=== PATIENT | male | born 1955 | race Caucasian/White ===

== ENCOUNTER 2021-06-03 09:41 | Emergency (ER) | payer MEDICARE, SELFPAY ==
--- NOTE | ~2021-06-03 | CT_ITS ---
EXAMINATION: CT abdomen pelvis wo con EXAM DATE: 06/03/2021 10:08 INDICATION: Right flank pain, stone study. TECHNIQUE: Spiral CT of the abdomen and pelvis was performed without contrast. Axial, coronal and s agittal images of the abdomen and pelvis were reviewed. The dose-length product (DLP) for this exami nation was 356.64 mGy-cm. The exposure was tailored according to patient size (auto mA exposure cont rol), and iterative reconstruction (ASIR) was used as additional dose reduction technique. There is no prior study for comparison. FINDINGS: There are 2 liver hypodensities most likely cysts. Spleen, adrenal glands, pancreas are unr emarkable. Gallbladder is unremarkable. No biliary obstruction. Punctate bilateral nephrolithiasis . There are no ureteral stones. There is no obstructive nephropathy. The prostate is unremarkable. L eft inguinal surgical clips from hernia repair. The bladder is unremarkable. There is no retroperit brennan or pelvic lymphadenopathy. There is mild scattered arteriosclerotic disease. The appendix is normal. The stomach and small bowel are unremarkable. There is mild descending and s igmoid colonic colonic diverticulosis. There is no adjacent inflammatory change to suggest diverticu litis. No free intraperitoneal gas. The heart is normal in size. There are no pericardial or pleu ral effusions. The lung bases are unremarkable. There are no osteoblastic or osteolytic lesions elizabeth ntified. IMPRESSION: 1. No acute intra-abdominal findings. 2. Punctate bilateral nephrolithiasis. 3. Mild colonic diverticulosis. Reviewed, dictated and finalized at location B. X CASTER
[2021-06-03 09:51] VITALS: BP 149/81; PULSE 56; RESP 16; TEMP 36.4; O2SAT 98
--- NOTE | 2021-06-03 09:56 | ED.GENADULT ---
HPI - General Adult General Chief complaint: Urogenital-Male Stated complaint: kidney stone Time Seen by Provider: 06/03/21 09:43 History of Present Illness HPI narrative: 65-year-old male with a history of kidney stones presents to the emergency department for evaluation of right flank pain. Patient states his right lower flank pain began Navin and has been persistent. Patient has been taking [id number] medications for this. Patient has had a stone previously and suspects that is what is going on. Patient's last stone was approximately 3 to 4 years ago and was cared for at [place]. Patient does not have a local urologist. Patient has had previous service at our hospital and wanted to be treated for the kidney stone at this hospital. Patient denies any chest pain or shortness of breath. Patient denies any associated nausea vomiting or diarrhea. Patient declined needing any medications for pain control at this time. Related Data Home Medications Medication Instructions Recorded Confirmed amiodarone 200 mg tablet 200 mg PO DAILY 05/02/19 aspirin 81 mg tablet,delayed 81 mg PO DAILY 05/02/19 release atorvastatin 20 mg tablet 20 mg PO DAILY 05/02/19 diltiazem HCl 300 mg 300 mg PO DAILY 05/02/19 capsule,extended release 24 hr losartan 50 mg tablet 50 mg PO DAILY 05/02/19 metformin 500 mg tablet 500 mg PO DAILY 05/02/19 omeprazole 20 mg capsule,delayed 20 mg PO DAILY 05/02/19 release tamsulosin 0.4 mg capsule 0.4 mg PO DAILY 05/02/19 Allergies Allergy/AdvReac Type Severity Reaction Status Date / Time clindamycin Allergy Unknown Unknown Verified 05/02/19 08:12 Review of Systems Review of Systems: CONSTITUTIONAL: Denies fever, chills, or sweats. EYES: Denies visual changes, redness, or discharge. ENT: Denies rhinorrhea, congestion, sore throat, or otalgia. CARDIOVASCULAR: Denies chest pain, palpitations, or edema. RESPIRATORY: Denies cough or dyspnea. GASTROINTESTINAL: Denies abdominal pain, nausea, vomiting, or diarrhea. GENITOURINARY: Denies dysuria or hematuria. Does report right lower flank pain SKIN: Denies rash or itching. MUSCULOSKELETAL: Denies back pain, joint pain, or myalgia. NEUROLOGIC: Denies headache, numbness, or weakness. 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 HEAD: normocephalic, atraumatic. EYES: PERRLA/EOMI, conjunctivae clear. NOSE: Normal no drainage THROAT: Pharynx clear, no exudate. NECK: Supple. No adenopathy, no masses. RESPIRATORY: Airway patent, respirations nonlabored. Clear to auscultation bilaterally, no rales, rhonchi, wheezing. CARDIOVASCULAR: Regular rate and rhythm without murmurs rubs or gallops. ABDOMINAL: Soft, nontender, nondistended, normal bowel sounds. Right CVA tenderness to palpation MUSCULOSKELETAL: Moves all extremities. Strength/ROM intact, No edema, No calf tenderness. NEURO: Alert. Cranial nerves II through XII intact. Good gait. Good coordination SKIN: Warm, dry. Normal Color PSYCHIATRIC: Normal affect/mood. Course Reevaluation(s) Reevaluation #1: Patient feels improved. Patient was updated the results of his CT. Patient was updated on the results of his labs. Patient was encouraged to have close follow-up with his primary care physi
[2021-06-03 10:22] LABS: Basophils Absolute Auto 0.1 K/mm3 (0.0-0.1); Eosinophils Absolute Auto 0.4 K/mm3 (0-0.3); Eosinophils Percent Auto 3.7 % (0-4.4); Hematocrit 47.4 % (42.0-52.0); Hemoglobin 15.3 g/dL (14.0-18.0); Lymphocytes Absolute Auto 1.92 K/mm3 (0.9-3.2); Mean Corpuscular HGB Conc 32.3 g/dl (32-36); Mean Corpuscular Volume 89.8 fl (80-100); Mean Platelet Volume 10.3 fl (7.4-10.4); Monocytes Absolute Auto 1.1 K/mm3 (0.1-0.6); Monocytes Percent Auto 11.1 % (2.6-8.5); Neutrophils Absolute Auto 6.4 K/mm3 (1.3-6.7); Neutrophils Percent Auto 63.2 % (45.5-73.1); Platelet Count Result 259 k/mm3 (150-375); Red Blood Count 5.28 M/mm3 (4.6-6.20); Red Cell Distribution Width 14.1 % (11.5-14.5); White Blood Count 10.1 K/mm3 (4.5-10.0)
[2021-06-03 10:27] LABS: Add Urine Microscopic? YES; Appearance Urine Clear (Clear); Bilirubin Urine Negative (Negative); Blood Urine Negative (Negative); Color Urine Yellow (Yellow); Glucose Urine UA Negative (Negative); Ketones Urine Negative (Negative); Leukocyte Esterase Ur Negative LEU/UL (Negative); Mucus Urine Rare /lpf; Nitrate Urine Negative (Negative); Protein Urine Negative (Negative); RBC Urine 0-2 /hpf (0-2); Specific Grav Ur 1.014 (1.001-1.035); Urobilinogen Urine Negative mg/dL (<2.0); WBC Urine 0-3 /hpf
[2021-06-03 10:46] LABS: Alanine Aminotransferase 38 U/L (4-50); Albumin Level 4.6 g/dL (3.5-5.1); Alkaline Phosphatase 96 U/L (38-126); Anion Gap 12 mmol/L (8-16); Aspartate Amino Transferase 44 U/L (17-59); Bilirubin,Total 0.9 mg/dL (0.2-1.3); Blood Urea Nitrogen 18 mg/dL (9-20); Calcium 9.8 mg/dL (8.4-10.2); Carbon Dioxide 30 mmol/L (22-30); Chloride 99 mmol/L (98-107); Estimated CRCL calculation 77 ml/min; Estimated Glomerular Filt Rate > 60; Glucose 102 mg/dL (65-110); Potassium 3.7 mmol/L (3.4-5.0); Sodium 141 mmol/L (137-145)
[2021-06-03 11:46] VITALS: BP 140/76; PULSE 57; RESP 16
== END 2021-06-03 11:48 | disposition home or self-care (01) ==
PROVIDERS: Emergency Provider Emergency Medicine; PCP Internal Medicine
DX: M54.50 Low back pain, unspecified (principal); I48.91 Unspecified atrial fibrillation; E11.9 Type 2 diabetes mellitus without complications; I10 Essential (primary) hypertension; Z79.84 Long term (current) use of oral hypoglycemic drugs
CPT/HCPCS: 36415; 74176; 80053; 81001; 85025; 99284

== ENCOUNTER 2023-04-05 11:56 | Emergency (ER) | payer MEDICARE, SELFPAY ==
--- NOTE | ~2023-04-05 | XR_ITS ---
EXAMINATION: XR chest 2V 04/05/2023 12:45 INDICATION: Right-sided chest pain PROCEDURE: 2 view chest COMPARISON: No prior studies for comparison. FINDINGS: The lungs are clear. The cardiomediastinal silhouette is within normal limits. There are no pleural effusions. There is no pneumothorax suspected. There are bilateral shoulder arthroplasti es. IMPRESSION: 1: NO ACUTE CARDIOPULMONARY DISEASE. Reviewed, dictated and finalized at location L. VE BOARD RACKER
--- NOTE | 2023-04-05 12:01 | ECG_ITS ---
Measurements Intervals [place] Rate: 82 P: -1 CO: 176 QRS: -29 QRSD: 112 T: 55 QT: 368 QTc: 431 Interpretive Statements SINUS RHYTHM INFERIOR INFARCT, AGE INDETERMINATE ABNORMAL ECG NO PREVIOUS ECG AVAILABLE FOR COMPARISON Electronically Signed On 04-05-2023 16:40:03 [employer] by Romel Jj D.O.
[2023-04-05 12:21] VITALS: BP 135/68; PULSE 87; RESP 16; TEMP 37.3; O2SAT 96
[2023-04-05 12:30] LABS: Basophils Absolute Auto 0.1 K/mm3 (0.0-0.1); Basophils Percent Auto 0.5 % (0.2-1.2); Eosinophils Absolute Auto 0.3 K/mm3 (0-0.3); Eosinophils Percent Auto 1.7 % (0-4.4); Hematocrit 46.2 % (42.0-52.0); Hemoglobin 14.4 g/dL (14.0-18.0); Immature Granulocyte Absolute 0.09 K/mm3 (0.00-0.031); Immature Granulocyte Percent A 0.5 % (0-0.5); Lymphocytes Absolute Auto 1.21 K/mm3 (0.9-3.2); Lymphocytes Percent Auto 6.8 % (18.3-44.2); Mean Corpuscular HGB Conc 31.2 g/dl (32-36); Mean Corpuscular Hemoglobin 28.6 pg (26-34); Mean Corpuscular Volume 91.8 fl (80-100); Mean Platelet Volume 10.1 fl (7.4-10.4); Monocytes Absolute Auto 1.7 K/mm3 (0.1-0.6); Monocytes Percent Auto 9.6 % (2.6-8.5); Neutrophils Absolute Auto 14.3 K/mm3 (1.3-6.7); Neutrophils Percent Auto 80.9 % (45.5-73.1); Platelet Count Result 314 k/mm3 (150-375); Red Blood Count 5.03 M/mm3 (4.6-6.20); Red Cell Distribution Width 13.7 % (11.5-14.5); White Blood Count 17.7 K/mm3 (4.5-10.0)
[2023-04-05 12:40] LABS: Alanine Aminotransferase 23 U/L (6-50); Albumin Level 4.7 g/dL (3.5-5.1); Alkaline Phosphatase 98 U/L (38-126); Anion Gap 14 mmol/L (8-16); Aspartate Amino Transferase 23 U/L (17-59); Blood Urea Nitrogen 19 mg/dL (9-20); Calcium 10.2 mg/dL (8.4-10.2); Carbon Dioxide 28 mmol/L (22-30); Chloride 100 mmol/L (98-107); Estimated CRCL calculation 67 ml/min; Estimated Glomerular Filt Rate > 60; Glucose 170 mg/dL (65-110); Lipase 237 U/L (23-300); Potassium 3.9 mmol/L (3.4-5.0); Sodium 142 mmol/L (137-145)
[2023-04-05 12:43] LABS: Prothrombin Time 13.7 Seconds (11.1-14.7)
[2023-04-05 12:44] LABS: Partial Thromboplastin Time 26.3 SECONDS (22.3-36.8)
[2023-04-05 12:52] LABS: Troponin I < 0.012 ng/mL (0.000-0.034)
--- NOTE | 2023-04-05 13:40 | ED.CHESTPAIN ---
HPI - Chest Pain General Chief Complaint: Chest Pain <MARYAM Abdullahi Last Filed: 04/05/23 13:53> Stated Complaint: chest pain <MARYAM Abdullahi Last Filed: 04/05/23 13:53> Time Seen by Provider: 04/05/23 15:26 <Lexus Luna PA-C - Last Filed: 04/05/23 13:53> Source: patient <MARYAM Abdullahi Last Filed: 04/05/23 13:53> Mode of arrival: ambulatory <MARYAM Abdullahi Last Filed: 04/05/23 13:53> Limitations: no limitations <MARYAM Abdullahi Last Filed: 04/05/23 13:53> History of Present Illness HPI narrative: Patient is a 67 y/o male who presents to the ED with c/o CP. Patient reports having constant R sided CP for the last 1.5 days. Pain described as heaviness, as though something sitting on his chest. Worse with deep breathing. Constant since onset. He reports previous similar pain 8 years ago when he was diagnosed with AFIB. Previously on amiodarone, now on flecainide. He is not on any anticoagulation. Manager Customer Service is Dr. Dhaliwal at [facility]. Concerned he is in AFIB again. He also reports having shortness of breath, congestion, mild cough. Denies fever, BLE swelling, wheezing, N/V/D, known sick contacts. <MARYAM Abdullahi Last Filed: 04/05/23 13:53> Related Data Home Medications: Home Medications Medication Instructions Recorded Confirmed amiodarone 200 mg tablet 200 mg PO DAILY 05/02/19 aspirin 81 mg tablet,delayed 81 mg PO DAILY 05/02/19 release atorvastatin 20 mg tablet 20 mg PO DAILY 05/02/19 diltiazem HCl 300 mg 300 mg PO DAILY 05/02/19 capsule,extended release 24 hr (Cartia XT) losartan 50 mg tablet 50 mg PO DAILY 05/02/19 metformin 500 mg tablet 500 mg PO DAILY 05/02/19 omeprazole 20 mg capsule,delayed 20 mg PO DAILY 05/02/19 release tamsulosin 0.4 mg capsule 0.4 mg PO DAILY 05/02/19 <Lexus Luna PA-C - Last Filed: 04/05/23 13:53> Allergies/Adverse Reactions: Allergies Allergy/AdvReac Type Severity Reaction Status Date / Time clindamycin Allergy Unknown Unknown Verified 05/02/19 08:12 <Lexus Luna PA-C - Last Filed: 04/05/23 13:53> Review of Systems Review of Systems: All systems reviewed & are unremarkable except as noted in HPI and below <Abad Gutierrez MD - Last Filed: 04/05/23 18:13> Constitutional: Constitutional: Denies fever(s) <Lexus Luna PA-C - Last Filed: 04/05/23 13:53> Cardiovascular: Cardiovascular: Reports chest pain <Lexus Luna PA-C - Last Filed: 04/05/23 13:53> Respiratory: Respiratory: Reports chest congestion, Reports cough and Reports dyspnea <Lexus Luna PA-C - Last Filed: 04/05/23 13:53> Gastrointestinal: Gastrointestinal: Denies diarrhea, Denies nausea and Denies vomiting <Lexus Luna PA-C - Last Filed: 04/05/23 13:53> [facility] Past Medical History Medical History: Medical History A-fib Diabetes type 2, controlled Hypertension <Lexus Luna PA-C - Last Filed: 04/05/23 13:53> Surgical History Surgical History: Surgical History Presence of left artificial knee joint (02/23/17) Presence of left artificial shoulder joint (07/05/16) Presence of right artificial knee joint (~2005) Presence of right artificial shoulder joint (~06/20/18) <Lexus Luna PA-C - Last Filed: 04/05/23 13:53> Family History Family History: Family History Other Family history of arthritis Family history of malignant neoplasm <Lexus Luna PA-C - Last Filed: 04/05/23 13:53> Social History Social History: Social History Smoking status: Never smoker Alcohol intake: never <Charla
[2023-04-05] MEDS: ASPIRIN 81 MG CHEWABLE TABLET 324 MG PO (13:45)
[2023-04-05 14:10] VITALS: BP 152/81; PULSE 81; RESP 16; TEMP 37.5; O2SAT 95
[2023-04-05 14:23] LABS: D Dimer < 0.27 ug/mL (<0.48)
[2023-04-05 14:45] LABS: Influenza A QL RT-PCR Negative (Negative); Influenza B QL RT-PCR Negative (Negative); SARS-CoV-2 RNA PCR Negative (Negative)
[2023-04-05 16:00] LABS: Troponin I < 0.012 ng/mL (0.000-0.034)
== END 2023-04-05 16:40 | disposition home or self-care (01) ==
PROVIDERS: Physician Assistant; Emergency Provider Emergency Medicine; PCP Physician Assistant
DX: R07.89 Other chest pain (principal); Z20.822 Contact with and (suspected) exposure to COVID-19; I48.91 Unspecified atrial fibrillation; E11.9 Type 2 diabetes mellitus without complications; I10 Essential (primary) hypertension; Z79.84 Long term (current) use of oral hypoglycemic drugs; Z79.82 Long term (current) use of aspirin; Z96.653 Presence of artificial knee joint, bilateral; Z96.612 Presence of left artificial shoulder joint; Z96.611 Presence of right artificial shoulder joint
CPT/HCPCS: 36415; 71046; 80053; 83690; 84484; 85025; 85380; 85610; 85730; 87636; 93005; 99284; A9270

== ENCOUNTER 2024-02-17 04:27 | Day surgery (SDC) | payer MEDICARE, SELFPAY ==
--- NOTE | 2024-02-16 11:34 | WPDANESEPPF ---
Anes - Initial Pre Proc Eval Procedure: Operation Date: 02/17/24 09:00 Proposed Procedures p Screening Colonoscopy - Kelvin Smith MD Date/Time: 02/16/24 11:34 Surgeon: Kelvin Smith MD Pre Op Diagnosis: hx of colonoic polyps Patient Data Age: 68 Gender: M Height: 1.78 m Weight: 95 kg Allergies Allergy/AdvReac Type Severity Reaction Status Date / Time clindamycin Allergy Unknown Unknown Verified 02/17/24 07:44 Home Medications Medication Instructions Recorded Confirmed Type aspirin 81 mg tablet,delayed 81 mg PO DAILY 05/02/19 01/26/24 History release atorvastatin 20 mg tablet 20 mg PO DAILY 05/02/19 01/26/24 History diltiazem HCl 300 mg 300 mg PO DAILY 05/02/19 02/17/24 History capsule,extended release 24 hr (Cartia XT) metformin 500 mg tablet 500 mg PO DAILY 05/02/19 01/26/24 History omeprazole 20 mg capsule,delayed 40 mg PO DAILY 05/02/19 01/26/24 History release clonidine HCl 0.1 mg tablet 0.1 mg PO DAILY 12/07/23 02/17/24 History flecainide 100 mg tablet 50 mg PO Q12H 12/07/23 01/26/24 History sildenafil 100 mg tablet 100 mg PO DAILY PRN Sexual Activity 12/07/23 01/26/24 History valsartan 320 1 tablet PO DAILY 12/07/23 02/17/24 History mg-hydrochlorothiazide 25 mg tablet Patient hx anesthesia problems: none Family hx anesthesia problems: none Results Review: All pre-operative results and documents have been reviewed as part of the pre-operative evaluation. [facility] Past Medical History Medical History (Updated 12/07/23 @ 09:41 by Tasha Cerrato CMA) A-fib Diabetes type 2, controlled History of stress test (~2019) Dr. 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) Presence of right artificial knee joint (~2005) Presence of right artificial shoulder joint (~06/20/18) Family History Family History Other Family history of arthritis Family history of malignant neoplasm Social History Social History (Updated 12/07/23 @ 09:40 by Tasha Cerrato CMA) Smoking status: Never smoker Alcohol intake: current Drinks per week: 1 Substance use type: does not use Do You Feel Safe in your Home?: Yes Lack of Transportation: No Lack of Food: Never True Current Housing: I Have Housing Concerned About Future Housing: No Difficulty Paying Gas/Electric Bills: No Difficulty Paying for Meds: No Currently Unemployed: No Education: Trade/Vocational Certificate Difficulty w/ Childcare or Family Care: No Living arrangements: alone Spiritual care concerns: No Anes - Eval Final PreProcedure Day of Procedure 02/16/24 11:34 Patient weight: obese Heart: regular rate and rhythm Lungs: clear to auscultation Airway: Mallampati scale class II Neurological: alert and oriented Last oral intake: >/= 8 hours ASA classification: III Emergent: no Anesthetic plan: proceed Anesthesia type and monitoring: general GIVS and standard monitoring Results Review: All pre-operative results and documents have been reviewed as part of the pre-operative evaluation. Informed Consent: The patient's anesthetic plan and its attendant risks and benefits were discussed with the patient/family/POA. Questions were solicited and answers provided to the satisfaction of the patient/family/POA.
[2024-02-17] VITALS (8 sets, daily range): BP systolic 102–141; BP diastolic 68–81; PULSE 84–131; RESP 20–22; TEMP 36.3; O2SAT 96–98
[2024-02-17 07:57] LABS: Glucose Point of Care 135 mg/dl (65-105)
[2024-02-17] MEDS: LACTATED RINGERS 1,000 ML 150 ML IV CONT (07:58)
[2024-02-17] MEDS: METOPROLOL TARTRATE INJ 5 MG/5 ML VIAL IV PUSH (08:03)
--- NOTE | 2024-02-17 08:04 | SUR.PREOP ---
Heart rate 130s on arrival to preop room, pt. denies pain, dizziness, shortness of breath. Pt. states a history of afib for about 2 years and last took his heart medications yesterday at 0800. 5mg IV Metoprolol given per Dr. Rutledge order. Pt. on continuous monitor.
--- NOTE | 2024-02-17 08:14 | SUR.PREOP ---
Heart rate now 90 on continuous monitor, Okay to go forward with procedure per Dr. Rutledge order.
--- NOTE | 2024-02-17 08:24 | PM.IMHP ---
H&P: HPI History of Present Illness Date/Time: 02/17/24 08:24 Chief Complaint: The patient has a history of colonic polyps. Here for his surveillance colonoscopy. Review of Systems Review of Systems: All systems reviewed & are unremarkable except as noted in HPI and below [facility] Past Medical History Medical History (Updated 02/17/24 @ 08:30 by Kelvin Smith MD) A-fib Diabetes type 2, controlled History of stress test (~2019) Dr. 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) Presence of right artificial knee joint (~2005) Presence of right artificial shoulder joint (~06/20/18) Family History Family History Other Family history of arthritis Family history of malignant neoplasm Social History Social History (Updated 12/07/23 @ 09:40 by Tasha Cerrato CMA) Smoking status: Never smoker Alcohol intake: current Drinks per week: 1 Substance use type: does not use Do You Feel Safe in your Home?: Yes Lack of Transportation: No Lack of Food: Never True Current Housing: I Have Housing Concerned About Future Housing: No Difficulty Paying Gas/Electric Bills: No Difficulty Paying for Meds: No Currently Unemployed: No Education: Trade/Vocational Certificate Difficulty w/ Childcare or Family Care: No Living arrangements: alone Spiritual care concerns: No Meds Home Medications and Allergies Home Medications Medication Instructions Recorded Confirmed Type aspirin 81 mg tablet,delayed 81 mg PO DAILY 05/02/19 01/26/24 History release atorvastatin 20 mg tablet 20 mg PO DAILY 05/02/19 01/26/24 History diltiazem HCl 300 mg 300 mg PO DAILY 05/02/19 02/17/24 History capsule,extended release 24 hr (Cartia XT) metformin 500 mg tablet 500 mg PO DAILY 05/02/19 01/26/24 History omeprazole 20 mg capsule,delayed 40 mg PO DAILY 05/02/19 01/26/24 History release clonidine HCl 0.1 mg tablet 0.1 mg PO DAILY 12/07/23 02/17/24 History flecainide 100 mg tablet 50 mg PO Q12H 12/07/23 01/26/24 History sildenafil 100 mg tablet 100 mg PO DAILY PRN Sexual Activity 12/07/23 01/26/24 History valsartan 320 1 tablet PO DAILY 12/07/23 02/17/24 History mg-hydrochlorothiazide 25 mg tablet Allergies Allergy/AdvReac Type Severity Reaction Status Date / Time clindamycin Allergy Unknown Unknown Verified 02/17/24 07:44 Vital Signs Vital Signs - 24 hr 02/17/24 07:47 02/17/24 08:03 Temperature 97.4 F L Pulse Rate 131 H 130 H Respiratory Rate 20 Blood Pressure 104/68 Pulse Oximetry 97 Oxygen Delivery Room Air Assessment and Plan Assessment and plan (1) History of colonic polyps: Code(s): Z86.0100 - Personal history of colon polyps, unspecified Status: Acute Assessment and Plan: as above Plan Patient deemed a good candidate for colonoscopy, will proceed.
--- NOTE | 2024-02-17 09:37 | ECG_ITS ---
Test Date: 2024-02-17 09:45:22 Measurements Intervals [place] Rate: 63 P: 0 LA: 0 QRS: -42 QRSD: 112 T: 12 QT: 386 QTc: 397 Interpretive Statements ATRIAL FLUTTER/TACHYCARDIA MARKED LEFT AXIS DEVIATION [QRS AXIS < -30] POSSIBLE INFERIOR MYOCARDIAL INFARCTION [30 ms Q WAVE IN II/aVF], PROBABLY OLD No previous ECG available for comparison Electronically Signed On 02-17-2024 10:42:57 CDT by Chema Norman M.D.
--- NOTE | 2024-02-17 09:43 | SUR.PHASEII ---
Addendum entered by Lexus Hernandez RN 02/17/24 09:56: EKG read by Dr. Mulligan. Orders to discharge pt. Pt instructed to return to the Emergency room for symptoms of dizziness,chest pain, or palpitations. Original Note: Pt appears to be in atrial flutter on the monitor. Dr. Mulligan (anesthesiologist) notified and at bedside. 12 Lead EKG ordered.
--- NOTE | 2024-02-17 09:51 | WPDANESPN ---
Anes - Prog Note Post-Op Date/Time: 02/17/24 09:51 Cardiovascular status: other (Afib/flutter) Vital Signs: Last Vital Signs Temp 36.3 C L 02/17/24 07:47 Pulse 89 02/17/24 09:35 Resp 22 H 02/17/24 09:35 BP 141/81 H 02/17/24 09:35 Pulse Ox 98 02/17/24 09:35 O2 Del Method Room Air 02/17/24 09:35 Pain Score (VAS): 0 I/O: Intake & Output 02/16/24 02/17/24 02/17/24 23:59 07:59 15:59 Intake Total 100 Balance 100 02/17/24 07:54 POC Capillary Glucose 135 H Patient Feedback: Patient satisfied with anesthetic care. Other Findings: Patient was in A fib RVR prior to procedure. He skipped his cardizem dose this morning. 5 mg metoprolol given IV and patient's rate came down to normal level. Patient asymptomatic - preceded with procedure. In recovery patient's heart rate a little elevated, but slowing trending back to normal on its own. EKG performed and shows A flutter with HR of 63. Patient instructed to go home and take his cardizem and return to ER if feelings of heart racing, chest pain, dyspnea, syncope or near syncope occur.
== END 2024-02-17 10:00 | disposition home or self-care (01) ==
PROVIDERS: PCP Physician Assistant; Referring Provider Physician Assistant; Visit Provider Internal Medicine Gastroenterology
PROC: 0DJD8ZZ Inspection of Lower Intestinal Tract, Via Natural or Artificial Opening Endoscopic (ICD-10-PCS; CPT 45378; principal; 2024-02-17 09:00)
DX: Z12.11 Encounter for screening for malignant neoplasm of colon (principal); D12.3 Benign neoplasm of transverse colon; K57.30 Diverticulosis of large intestine without perforation or abscess without bleeding; I48.91 Unspecified atrial fibrillation; E11.9 Type 2 diabetes mellitus without complications; E78.5 Hyperlipidemia, unspecified; I10 Essential (primary) hypertension; G47.30 Sleep apnea, unspecified; Z79.82 Long term (current) use of aspirin; Z79.84 Long term (current) use of oral hypoglycemic drugs; E66.9 Obesity, unspecified; Z68.28 Body mass index [BMI] 28.0-28.9, adult
CPT/HCPCS: 45385; 45381; 82948; 88305; 93005; J2003; J2704; J7120

== ENCOUNTER 2024-02-18 19:12 | Emergency (ER) | payer MEDICARE, SELFPAY ==
--- NOTE | ~2024-02-18 | XR_ITS ---
EXAMINATION: XR chest 2V Exam Date/Time: 02/18/2024 19:37 CDT HISTORY: CP, AFIB, SOB Comparison: 04/05/2023. RESULT: Lines, tubes, and devices: Partially visualized shoulder arthroplasties. Lungs and pleura: Clear. Cardiomediastinal silhouette: Stable. Other: No acute osseous or upper abdominal finding. IMPRESSION: No acute cardiopulmonary process. Reviewed, dictated and finalized at location K.
--- NOTE | 2024-02-18 19:13 | ECG_ITS ---
Test Date: 2024-02-18 19:17:21 Measurements Intervals [place] Rate: 94 P: 0 NE: 0 QRS: -31 QRSD: 115 T: 71 QT: 353 QTc: 444 Interpretive Statements ATRIAL FIBRILLATION MARKED LEFT AXIS DEVIATION [QRS AXIS < -30] POSSIBLE INFERIOR MYOCARDIAL INFARCTION , OF INDETERMINATE AGE [30 ms Q WAVE IN II/aVF] Compared to ECG 02/17/2024 09:45:22 NO CHANGE SINCE PREVIOUS ECG Electronically Signed On 02-19-2024 11:32:14 CDT by Rober Monteiro M.D.
[2024-02-18 19:21] VITALS: BP 120/71; PULSE 110; RESP 16; O2SAT 96
[2024-02-18 19:24] VITALS: PULSE 110
[2024-02-18 19:28] VITALS: TEMP 36.2
[2024-02-18] MEDS: ASPIRIN 81 MG CHEWABLE TABLET 324 MG PO (19:29)
[2024-02-18 19:32] VITALS: O2SAT 96
[2024-02-18 19:39] LABS: Basophils Absolute Auto 0.1 K/mm3 (0.0-0.1); Basophils Percent Auto 0.6 % (0.2-1.2); Eosinophils Absolute Auto 0.5 K/mm3 (0-0.3); Eosinophils Percent Auto 4.4 % (0-4.4); Hematocrit 44.7 % (42.0-52.0); Hemoglobin 14.7 g/dL (14.0-18.0); Immature Granulocyte Absolute 0.09 K/mm3 (0.00-0.031); Immature Granulocyte Percent A 0.8 % (0-0.5); Lymphocytes Absolute Auto 3.12 K/mm3 (0.9-3.2); Lymphocytes Percent Auto 28.4 % (18.3-44.2); Mean Corpuscular HGB Conc 32.9 g/dl (32-36); Mean Corpuscular Hemoglobin 28.7 pg (26-34); Mean Corpuscular Volume 87.3 fl (80-100); Mean Platelet Volume 10.3 fl (7.4-10.4); Monocytes Absolute Auto 1.4 K/mm3 (0.1-0.6); Neutrophils Absolute Auto 5.8 K/mm3 (1.3-6.7); Neutrophils Percent Auto 52.8 % (45.5-73.1); Platelet Count Result 303 k/mm3 (150-375); Red Blood Count 5.12 M/mm3 (4.6-6.20); Red Cell Distribution Width 14.6 % (11.5-14.5)
--- NOTE | 2024-02-18 19:40 | PC.NURSE ---
This RN attempted to start pts cardizem drip then realized he was in sinus rhythm at 66bpm. KODAK Trujillo notified and stated to hold off on the medication.
[2024-02-18 19:49] LABS: Prothrombin Time 13.6 Seconds (11.1-14.7)
[2024-02-18 19:50] LABS: Alanine Aminotransferase 17 U/L (6-50); Alkaline Phosphatase 96 U/L (38-126); Anion Gap 7 mmol/L (4-12); Aspartate Amino Transferase 23 U/L (17-59); Bilirubin,Total 0.9 mg/dL (0.2-1.3); Blood Urea Nitrogen 22 mg/dL (9-20); Calcium 9.8 mg/dL (8.4-10.2); Carbon Dioxide 25 mmol/L (22-30); Chloride 108 mmol/L (98-107); Estimated CRCL calculation 54 ml/min; Estimated Glomerular Filt Rate 60; Glucose 140 mg/dL (65-110); Lipase 452 U/L (23-300); Potassium 3.6 mmol/L (3.4-5.0); Sodium 140 mmol/L (137-145)
[2024-02-18 19:51] LABS: Partial Thromboplastin Time 24.6 Seconds (22.3-36.8)
[2024-02-18 20:02] LABS: Troponin I < 0.012 ng/mL (0.000-0.034)
[2024-02-18 20:04] LABS: Magnesium 1.9 mg/dL (1.6-2.3)
[2024-02-18 20:10] VITALS: BP 119/77; PULSE 68; RESP 15; O2SAT 98
--- NOTE | 2024-02-18 20:34 | ECG_ITS ---
Test Date: 2024-02-18 20:44:03 Measurements Intervals [place] Rate: 62 P: 39 LA: 205 QRS: -48 QRSD: 116 T: 57 QT: 425 QTc: 432 Interpretive Statements SINUS RHYTHM LEFT ANTERIOR FASCICULAR BLOCK [QRS AXIS <= -45, QR IN I, RS IN II] Compared to ECG 02/18/2024 19:17:21 Atrial fibrillation no longer present Electronically Signed On 02-19-2024 11:32:46 CDT by Rober Monteiro M.D.
[2024-02-18] MEDS: POTASSIUM CHLORIDE 20 MEQ PACKET (FOR LIQUID) 40 MEQ PO (20:35)
[2024-02-18] MEDS: MAGNESIUM SULF 1 GM/D5W 100 ML 1 GM/100 ML BAG IVPB (20:35)
[2024-02-18] MEDS: SODIUM CHLORIDE 0.9% IV 1,000 ML 999 ML IV CONT (20:35)
--- NOTE | 2024-02-18 21:08 | ED.GENADULT ---
HPI - General Adult General Chief complaint: Chest Pain Stated complaint: CP, High HR. Time Seen by Provider: 02/18/24 19:27 History of Present Illness HPI narrative: Patient is a 68-year-old gentleman who presents emergency department with chief complaint of chest pain and shortness of breath patient reports he has history AFib and takes Cardizem and flecainide the patient reports that he had a colonoscopy done yesterday and when he was at the procedure they had given him some IV medications to control his heart rate the patient states today he started having some tightness and felt as though his heart was beating irregular his heart rate was up in the 130s patient states he took his flecainide before coming in the emergency department and reports that he still having symptoms until sitting in the department his heart rate went back into sinus rhythm. Patient states currently feels asymptomatic Related Data Home Medications Medication Instructions Recorded Confirmed aspirin 81 mg tablet,delayed 81 mg PO DAILY 05/02/19 02/17/24 release atorvastatin 20 mg tablet 20 mg PO DAILY 05/02/19 02/17/24 diltiazem HCl 300 mg 300 mg PO DAILY 05/02/19 02/17/24 capsule,extended release 24 hr (Cartia XT) metformin 500 mg tablet 500 mg PO DAILY 05/02/19 02/17/24 omeprazole 20 mg capsule,delayed 40 mg PO DAILY 05/02/19 02/17/24 release clonidine HCl 0.1 mg tablet 0.1 mg PO DAILY 12/07/23 02/17/24 flecainide 100 mg tablet 50 mg PO Q12H 12/07/23 02/17/24 sildenafil 100 mg tablet 100 mg PO DAILY PRN Sexual Activity 12/07/23 02/17/24 valsartan 320 1 tablet PO DAILY 12/07/23 02/17/24 mg-hydrochlorothiazide 25 mg tablet Allergies Allergy/AdvReac Type Severity Reaction Status Date / Time clindamycin Allergy Unknown Unknown Verified 02/17/24 07:44 Review of Systems Review of Systems: A 10 system review of systems was completed on the patient and is negative except for what is stated in the HPI. Nursing and ancillary documentation was reviewed. [facility] Past Medical History Medical History A-fib Diabetes type 2, controlled History of stress test (~2019) Dr. 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) Presence of right artificial knee joint (~2005) Presence of right artificial shoulder joint (~06/20/18) Family History Family History Other Family history of arthritis Family history of malignant neoplasm Social History Social History Smoking status: Never smoker Alcohol intake: current Drinks per week: 1 Substance use type: does not use Do You Feel Safe in your Home?: Yes Lack of Transportation: No Lack of Food: Never True Current Housing: I Have Housing Concerned About Future Housing: No Difficulty Paying Gas/Electric Bills: No Difficulty Paying for Meds: No Currently Unemployed: No Education: Trade/Vocational Certificate Difficulty w/ Childcare or Family Care: No Living arrangements: alone Spiritual care concerns: No Exam Narrative: GENERAL: Well-appearing, well-nourished, and in no acute distress. HEAD: Normocephalic, atraumatic. EYES: PERRLA and EOMI. ENT: Nares clear, no rhinorrhea or epistaxis. Mucous membranes moist. NECK: Supple. CHEST: Clear to auscultation. No respiratory distress. HEART: Regular rate and rhythm. No murmur heard. Normal peripheral pulses. ABDOMEN: Soft, nontender, nondistended, normal active bowel sounds. EXTREMITIES: Normal range of motion. No edema. SKIN: Warm, dry, no rash. NEURO: No focal deficits. Alert and oriented x3. PSYCH: Normal mood and affect.
[2024-02-18 21:58] VITALS: BP 127/73; PULSE 64; RESP 18; O2SAT 97
--- NOTE | 2024-02-18 22:29 | ECG_ITS ---
Test Date: 2024-02-18 22:32:14 Measurements Intervals [place] Rate: 58 P: 46 AR: 218 QRS: -33 QRSD: 114 T: 23 QT: 440 QTc: 434 Interpretive Statements SINUS BRADYCARDIA WITH FIRST DEGREE AV BLOCK LEFT AXIS DEVIATION [QRS AXIS < -30] INFERIOR MYOCARDIAL INFARCTION , PROBABLY OLD [40+ ms Q WAVE AND/OR ST/T ABNORMALITY IN II/aVF] Compared to ECG 02/18/2024 20:44:03 First degree AV block now present Left-axis deviation now present Myocardial infarct finding now present Sinus rhythm no longer present Left anterior fascicular block no longer present Electronically Signed On 02-19-2024 11:33:35 CDT by Rober Monteiro M.D.
[2024-02-18 22:30] LABS: Troponin I < 0.012 ng/mL (0.000-0.034)
== END 2024-02-18 23:25 | disposition home or self-care (01) ==
PROVIDERS: Emergency Provider Emergency Medicine; PCP Physician Assistant
DX: I48.91 Unspecified atrial fibrillation (principal); R07.9 Chest pain, unspecified; I10 Essential (primary) hypertension; E11.9 Type 2 diabetes mellitus without complications; E78.5 Hyperlipidemia, unspecified; G47.30 Sleep apnea, unspecified; Z96.653 Presence of artificial knee joint, bilateral; Z96.612 Presence of left artificial shoulder joint; Z96.611 Presence of right artificial shoulder joint; Z79.899 Other long term (current) drug therapy; Z79.82 Long term (current) use of aspirin; Z79.84 Long term (current) use of oral hypoglycemic drugs; R94.31 Abnormal electrocardiogram [ECG] [EKG]; I44.4 Left anterior fascicular block; I44.0 Atrioventricular block, first degree; R00.1 Bradycardia, unspecified
CPT/HCPCS: 36415; 71046; 80053; 83690; 83735; 84484; 85025; 85610; 85730; 93005; 96365; 99284; A9270; J3475; J7030

== ENCOUNTER 2024-03-23 01:44 | Day surgery (SDC) | payer MEDICARE, SELFPAY ==
[2024-03-15 11:00] VITALS: BMI 29.2
--- NOTE | 2024-03-15 11:26 | PC.NURSE ---
Report to the Outpatient Waiting Room, entrance under the green pavilion located off [facility], at time ___9:30AM____ on date ___03/23/24____. Planned Procedure Time: ____11:30AM____.? Time changes happen often and if your time is changed the preop area will call you the afternoon before. - You and your visitor will be asked to self-screen and do not enter if you have any COVID symptoms. Please call surgeon if you need to reschedule. - A mask is optional within the hospital at this time. Patients may have clear liquids (water, carbonated beverages, clear teas, apple juice) until 3 hours prior to surgery with a maximum of 20 ounces. - No food from midnight until time of surgery and no smoking. Take only the following medications with a SIP of water on the morning of surgery: FLECAINIDE DO NOT STOP ANY OF YOUR OTHER PRESCRIPTION MEDICATIONS PRIOR TO SURGERY EXCEPT THE FOLLOWING Medications to discontinue per physician ____HOLD ASPIRIN & VITAMIN E 7 DAYS PRE-OP PER DR TIM Date to take last dose 03/15/24 Please no make-up, nail croatian, hairspray, perfume, deodorant, or body powder the day of surgery.? No jewelry (including any body piercings) or valuables the day of surgery, leave them at home.? Please take a shower or bath the night before, or the morning of, surgery with an antibacterial soap.? Wear comfortable, loose fitting clothing.? - Jewelry must be removed prior to entering the operating room.? Rings and piercings that are not removed may be cut off. - The hospital will not accept responsibility for valuables.? - Please leave all valuables, including medications, at home the day of surgery. If you are going home after surgery, a licensed bulk delivery driver must drive you home.? - NO public transportation without another adult if you receive anesthesia. - We recommend that an adult stay with you for 24 hours following discharge. - We also recommend that you do not drive, make important decision, drink alcoholic beverages, or take any drugs that were not prescribed by your health care provider for at least 24 hours after your discharge time. Follow any additional instructions given to you from your surgeon. Telephone instructions given to PATIENT____and asked if any additional questions and then verbalized understanding. Patient advised to call surgeon office or pre surgery nurse liaison [phone] if any additional questions.
[2024-03-23] VITALS (8 sets, daily range): BP systolic 100–116; BP diastolic 48–61; PULSE 55–71; RESP 14–17; TEMP 36.3–36.9; O2SAT 94–100
--- NOTE | 2024-03-23 09:28 | WPDANESEPP ---
Anes - Eval Pre Procedure Procedure: Operation Date: 03/23/24 11:30 Proposed Procedures p Left Shoulder Arthroscopy with Capsular Release - Nithin Roldan MD Date/Time: 03/23/24 09:28 Pre Op Diagnosis: left shoulder contracture Patient Data Age: 68 Gender: M Height: 1.79 m Weight: 94 kg Allergies Allergy/AdvReac Type Severity Reaction Status Date / Time clindamycin Allergy Unknown Rash Verified 03/23/24 10:49 Home Medications Medication Instructions Recorded Confirmed Type aspirin 81 mg tablet,delayed 81 mg PO DAILY 05/02/19 03/15/24 History release atorvastatin 20 mg tablet 20 mg PO DAILY 05/02/19 03/15/24 History diltiazem HCl 300 mg 300 mg PO HS 05/02/19 03/15/24 History capsule,extended release 24 hr (Cartia XT) metformin 500 mg tablet 1,000 mg PO BID 05/02/19 03/15/24 History clonidine HCl 0.1 mg tablet 0.1 mg PO HS 12/07/23 03/15/24 History flecainide 100 mg tablet 50 mg PO Q12H 12/07/23 03/23/24 History sildenafil 100 mg tablet 100 mg PO DAILY PRN Sexual Activity 12/07/23 03/15/24 History valsartan 320 1 tablet PO QAM 12/07/23 03/23/24 History mg-hydrochlorothiazide 25 mg tablet vitamin E mixed 400 unit tablet 400 unit PO HS 03/12/24 03/15/24 History omeprazole 40 mg capsule,delayed 40 mg PO HS 03/15/24 03/15/24 History release oxycodone-acetaminophen 5 mg-325 1 - 2 tablet PO Q4-6H PRN pain 7 03/23/24 Rx mg tablet days #30 tabs Patient hx anesthesia problems: none Family hx anesthesia problems: none Results Review: All pre-operative results and documents have been reviewed as part of the pre-operative evaluation. [facility] Past Medical History Medical History (Updated 03/23/24 @ 09:30 by Ankur Sandoval Jr., AIRCONDITIONING ENGINEER) A-fib Diabetes type 2, controlled History of stress test (~2019) Dr. Dhaliwal Hyperlipidemia Hypertension Paroxysmal A-fib Sleep apnea Surgical History Surgical History Presence of left artificial knee joint (02/23/17) Presence of left artificial shoulder joint (07/05/16) Presence of right artificial knee joint (~2005) Presence of right artificial shoulder joint (~06/20/18) Family History Family History Other Family history of arthritis Family history of malignant neoplasm Social History Social History Smoking status: Never smoker Alcohol intake: current Drinks per week: 2 Substance use type: does not use Do You Feel Safe in your Home?: Yes Lack of Transportation: No Lack of Food: Never True Current Housing: I Have Housing Concerned About Future Housing: No Difficulty Paying Gas/Electric Bills: No Difficulty Paying for Meds: No Currently Unemployed: No Education: Trade/Vocational Certificate Difficulty w/ Childcare or Family Care: No Living arrangements: alone Spiritual care concerns: No Exam Day of Procedure 03/23/24 09:28
[2024-03-23 09:49] LABS: Glucose Point of Care 119 mg/dl (65-105)
[2024-03-23] MEDS: ACETAMINOPHEN 500 MG TABLET 1000 MG PO (10:00)
[2024-03-23] MEDS: KETOROLAC 15 MG/ML VIAL (*BKC) IV PUSH (10:00)
[2024-03-23] MEDS: LACTATED RINGERS 1,000 ML 30 ML IV CONT ×2 (10:00→14:46)
--- NOTE | 2024-03-23 10:11 | P.PNAN_ITS ---
Anes - Initial Pre Proc Eval Procedure: Operation Date: 03/23/24 11:30 Proposed Procedures p Left Shoulder Arthroscopy with Capsular Release - Nithin Roldan MD Date/Time: 03/23/24 10:11 Surgeon: Nithin Roldan MD Pre Op Diagnosis: left shoulder contracture Patient Data Age: 68 Gender: M Height: 1.79 m Weight: 94 kg Allergies Allergy/AdvReac Type Severity Reaction Status Date / Time clindamycin Allergy Unknown Rash Verified 03/15/24 10:54 Home Medications Medication Instructions Recorded Confirmed Type aspirin 81 mg tablet,delayed 81 mg PO DAILY 05/02/19 03/15/24 History release atorvastatin 20 mg tablet 20 mg PO DAILY 05/02/19 03/15/24 History diltiazem HCl 300 mg 300 mg PO HS 05/02/19 03/15/24 History capsule,extended release 24 hr (Cartia XT) metformin 500 mg tablet 1,000 mg PO BID 05/02/19 03/15/24 History clonidine HCl 0.1 mg tablet 0.1 mg PO HS 12/07/23 03/15/24 History flecainide 100 mg tablet 50 mg PO Q12H 12/07/23 03/15/24 History sildenafil 100 mg tablet 100 mg PO DAILY PRN Sexual Activity 12/07/23 03/15/24 History valsartan 320 1 tablet PO QAM 12/07/23 03/15/24 History mg-hydrochlorothiazide 25 mg tablet vitamin E mixed 400 unit tablet 400 unit PO HS 03/12/24 03/15/24 History omeprazole 40 mg capsule,delayed 40 mg PO HS 03/15/24 03/15/24 History release hydrocodone 5 mg-acetaminophen 325 1 - 2 tablet PO Q4-6H PRN pain 7 03/23/24 Rx mg tablet days #30 tabs Laboratory Tests 03/23/24 09:45 POC Capillary Glucose 119 H mg/dl (65-105) Patient hx anesthesia problems: none Family hx anesthesia problems: none Results Review: All pre-operative results and documents have been reviewed as part of the pre- operative evaluation. REPLACED BY [facility] Past Medical History Medical History (Updated 03/23/24 @ 09:30 by Ankur Sandoval Jr., ARTIFICIAL BREAST FABRICATOR) A-fib Diabetes type 2, controlled History of stress test (~2019) Dr. Dhaliwal Hyperlipidemia Hypertension Paroxysmal A-fib Sleep apnea Surgical History Surgical History Presence of left artificial knee joint (02/23/17) Presence of left artificial shoulder joint (07/05/16) Presence of right artificial knee joint (~2005) Presence of right artificial shoulder joint (~06/20/18) Family History Family History Other Family history of arthritis Family history of malignant neoplasm Social History Social History Smoking status: Never smoker Alcohol intake: current Drinks per week: 2 Substance use type: does not use Do You Feel Safe in your Home?: Yes Lack of Transportation: No Lack of Food: Never True Current Housing: I Have Housing Concerned About Future Housing: No Difficulty Paying Gas/Electric Bills: No Difficulty Paying for Meds: No Currently Unemployed: No Education: Trade/Vocational Certificate Difficulty w/ Childcare or Family Care: No Living arrangements: alone Spiritual care concerns: No Anes - Eval Final PreProcedure Day of Procedure 03/23/24 10:11 Patient weight: overweight Heart: regular rate and rhythm Lungs: clear to auscultation Airway: Mallampati scale class II Neurological: alert and oriented Last oral intake: >/= 8 hours ASA classification: III Emergent: no Anesthetic plan: proceed Anesthesia type and monitoring: general ETT and standard monitoring Results Review: All pre-operative results and documents have been reviewed as part of the pre- operative evaluation. Informed Consent: The patient's anesthetic plan and its attendant risks and benefits were discussed with the patient/family/POA. Questions were solicited and answers provided to the satisfaction of the patient/family/POA.
--- NOTE | 2024-03-23 10:23 | WPDANESPNB ---
Anes - Peripheral Nerve Block Date/Time: 03/23/24 10:23 I have discussed with the patient/family/POA the placement of a peripheral nerve block for post-operative pain management, including associated risks, benefits, complications, and side effects. Alternative methods of post-operative analgesia were detailed. Questions were solicited and answers provided to the satisfaction of the patient/family/POA. Time-Out: A pre-procedural Time-Out was completed immediately before starting the procedure and confirmed: Patient Identification, Site, Procedure, Patient Position and the Availability of Requisite Equipment. Clinical Indications: Acute post-operative pain management requested by the operative surgeon. Nerve Block Insertion Note Anes-nerve block: interscalene left Patient position: supine Skin prep: chlorhexidine Needle: 22 gauge, stimulating, insulated echogenic needle. Needle length: 50 mm Technique: ultrasound Injectate: bupivacaine 0.5% with epi 5 mcg/ml (30cc- no epi) Observations: tolerated well Complications: none Procedure start time:: 1048 Procedure end time:: 1051
[2024-03-23] MEDS: ceFAZolin 2 GM/D5W 50 ML 2 GM/50 ML BAG IVPB (10:58)
--- NOTE | 2024-03-23 11:15 | WPDHPUPDATE1 ---
History and Physical Update Update Date/Time: 03/23/24 11:15 History and Physical has been reviewed, including an updated exam of the patient. There are NO changes in the patient's condition. Risks, benefits, and alternatives have been discussed and questions answered. Patient agrees to proceed with procedure.
--- NOTE | 2024-03-23 12:29 | SUR.OPER ---
Cultures given to Kevin in Lab Department by MIKHAIL Garza.
[2024-03-23] MEDS: TRANEXAMIC ACID 1,000 MG/10 ML AMPUL 1000 MG IV PUSH (14:22)
[2024-03-23 14:58] LABS: Glucose Point of Care 127 mg/dl (65-105)
--- NOTE | 2024-03-23 17:06 | W.PM.PROC2 ---
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 Post-op Diagnosis Other (Loose glenoid component status post anatomic total shoulder arthroplasty with capsular contracture.) Procedure Performed Arthroscopic extensive synovectomy and removal of loose glenoid polyethylene component, left shoulder. Surgeon Nithin Roldan MD Building Coordinator Radha Clark PA-C Anesthesia General Findings There were no signs of infection. Five tissue samples were taken for culture. The glenoid component was noted to be grossly loose. It was partially fixed by the PEG holes. The component (Tornier Cortiloc) was freed from the PEG holes and cut into small enough pieces to remove arthroscopically. Excess cement and debris were gently debrided. Hypertrophic synovium was debrided with the arthroscopic shaver and the radiofrequency probe. The subdeltoid space showed only minimal adhesions. The rotator cuff appeared healthy. However, the articular rotator cuff showed low-grade articular side fraying. The subscapularis appeared to be intact. Description of Procedure A general anesthetic was administered. Preoperative antibiotics were given and redosed at the end of the procedure. The shoulder was quite stiff with passive elevation on the table to 70?, external rotation 20?, abduction 60? and internal rotation in abduction to 40?. Standard posterior and anterior-superior arthroscopic portals were initially established. An accessory anterior portal was later used. Inflows was obtained with the saline pump. Initially the anterior capsule and synovium was found to be quite tight. This tissue was gently released preserving the subscapularis. Five synovial tissue samples were taken for culture. There were no significant signs of infection. A capsule release along the inferior margin of the component on the glenoid side was performed along the inferior border to the posterior 5 o'clock position. The glenoid component was probed and found to be de bonded and loose. There was moderate central bone wear. Using a straight and curved quarter-inch osteotome, the component was released from the pegs and morselized into small enough pieces that could be removed through the anterior superior portal. The component itself was a large component and appeared to have excellent initial coverage of the glenoid. Cement debris and debridement of the base was performed gently. The undersurface the rotator cuff was gently debrided of capsular tissue. Articular partial tearing was suggested without any evidence of full-thickness tear. Attention was turned to the subacromial space. There was some moderate deltoid bursa tissue, but no severe adhesions were detected. The bursal side rotator cuff appeared healthy. The arthroscopic instruments removed. The wounds were closed with interrupted 3-0 Monocryl suture followed by Steri-Strips. The anterior superior portal had moderate hemorrhage. This resolved with pressure and hemostatic powder. Tranexamic acid was also given. A sterile gauze dressing was applied, followed by a sling and swath. The patient was extubated and brought to the recovery room in stable condition. There were no complications. Estimated Blood Loss 25 Drains No Packing No Pathology Yes (Tissue culture x5) Complications No immediate complications Condition Stable Disposition PACU [facility] Billing Surgery - Charge Forward: Surgery Billing
== END 2024-03-23 17:07 | disposition home or self-care (01) ==
PROVIDERS: PCP Physician Assistant; Visit Provider Orthopaedic Surgery
PROC: (CPT 29805; principal; 2024-03-23 11:30)
DX: T84.038A Mechanical loosening of other internal prosthetic joint, initial encounter (principal); M24.512 Contracture, left shoulder; M65.912 Unspecified synovitis and tenosynovitis, left shoulder; G89.18 Other acute postprocedural pain; Y83.8 Other surgical procedures as the cause of abnormal reaction of the patient, or of later complication, without mention of misadventure at the time of the procedure; Z96.612 Presence of left artificial shoulder joint; I10 Essential (primary) hypertension; I48.0 Paroxysmal atrial fibrillation; E11.9 Type 2 diabetes mellitus without complications; E78.5 Hyperlipidemia, unspecified; G47.30 Sleep apnea, unspecified
CPT/HCPCS: 29999; 64415; 82948; 87070; 87205; A4565; A9270; J0690; J1100; J1885; J2003; J2250; J2371; J2405; J2704; J3010; J7120

== ENCOUNTER 2025-03-03 01:48 | Emergency (ER) | payer MEDICARE, SELFPAY ==
--- OUTSIDE RECORDS SUMMARY | 2019-03-16 03:42 | XMS_ITS | Continuity of Care Document ---
Author Organization [facility] Address [address] [place] [address] Phone Care Team Providers Care Warehouse Operations Associate Name Role Phone Monster Ornelas MD Unavailable Unavailable Allergies, Adverse Reactions, Alerts Substance Reaction Status Criticality No Known Allergies Active No Inform ation Medications Medication Instructions Dosage Effective Dates (start - stop) Status Comments OMEPRAZOLE DR CAPS 40MG TAKE 1 CAPSULE DAILY BEFORE A MEAL - Active losartan 50 mg tablet take 1 tablet by oral route every day 50 MG - Active diltiazem ER 300 mg tablet,extended release 24 hr take 1 tablet by oral route every day 300 MG - Active metformin 500 mg tablet take 2 tablet by oral route every day with morning and evening meals 1000 MG - Active amiodarone 200 mg tablet take 1 tablet by oral route every day 200 MG - Active tamsulosin 0.4 mg capsule take 1 capsule by oral route every day 1/2 hour following the same meal each day 0.4 MG - Active atorvastatin 20 mg tablet take 1 tablet by oral route every day 20 MG - Active Aspir-81 81 mg tablet,delayed release take 1 tablet by oral route every day - Active OMEPRAZOLE 40 MG CAPSULE,DELAYED RELEASE TAKE 1 CAPSULE BY ORAL ROUTE EVERY DAY BEFORE A MEAL 40 MG - No Longer Active Advance Directives Directive Yes / No Effective Date File Name No Information Encounters Encounter Description Practice Location Reason(s) For Visit Diagnoses Date Provider Providers Copied on Encounter [facility], [address], [place], [place], [id number], [place] tel:[phone] [facility] No Information [address] [place], [place], [id number] , [place]. tel: [phone] [facility], [address], [place], [place], [id number], [place] tel:[phone] [facility] Liver lesion [address] [place] [address], [id number] , [place]. tel: [phone] [facility], [address], [place], [place], [id number], [place] tel:[phone] [facility] Elevated LFTsLiver lesion [address] [place] [address], [id number] , [place]. tel: [phone] [facility], [address], [place], [place], [id number], [place] tel:[phone] [facility] No Information [address] [place] [address], [id number] , [place]. tel: [phone] [facility], [address], [place], [id number], [place] tel:[phone] [facility] Elevated LFTsLiver lesion [address] [place] [address], [id number] , [place]. tel: [phone] [facility], [address], [place], [place], [id number], [place] tel:[phone] [facility] Liver lesionElevated LFTsH/O adenomatous polyp of colon [address] [place] [address], [id number] , [place]. tel: [phone] Referring Provider: Andrea Emmanuel, [address] [place] [address], [address]. tel:[phone] Family History Family Member Type Diagnosis Age At Onset No Information Payers Payer name Insurance type Covered green party ID Authorteodora wang(s) [facility] [id number] Social History Type Description Quantity Date Captured Comments Sex Male Smoking Status No Information Chief Complaint And Reason For Visit No Information Reason For Referral Reason For Referral No Information History Of Present Illness Encounter Date Complaint History Of Prese nt Illness No Information Functional Status Date Functional Assessmen t No Information Instructions Date Instruction Additional Infor mation No Information Assessments Type Assessment Date No Information Patient Care Teams Name Effective Dates (start - stop) Status Members No Information
--- NOTE | ~2025-03-03 | XR_ITS ---
Examination: XR chest 1V portable Clinical History: Palpitations Comparison: 02/18/2024 Technique: Portable AP Findings: Heart size upper limit of normal. Lungs clear. No acute bony abnormality. IMPRESSION: 1. No acute cardiopulmonary findings given portable technique. Reviewed, dictated and finalized at location R.
--- OUTSIDE RECORDS SUMMARY | 2025-03-03 01:51 | XMS_ITS | Encounter Summary ---
Author Organization [facility] Healthcare Address [address] [place] [address] Care Team Providers Care Enamel Burner Name Role Phone Preston Gusman Primary Care Provider Caden Dhaliwal MD Unavailable [phone] Antoni Gamez MD Unavailable [phone] Nithin Roldan MD Unavailable [phone] Sanaz Greenwood RN Unavailable Sherry StallworthW Unavailable [phone] Willie Gonzales MD Unavailable Cristina Moreno NP Unavailable [phone] Reason for Referral * MRI/CAT/PET Scan (Routine) - Closed Specialty Diagnoses / Procedures Referred By Contac t Referred To Contact Radiology Diagnoses Raised prostate specific antigen Procedures MRI PELVIS PROSTATE W WO CONTRAST Hannah Oscar MD Phone: tel: fax: [address] [phone] Referral ID Status Reason Start Date Expiration Date Visits Re quested Visits Authorized [id number] Closed 06/07/2024 07/07/2025 1 1 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 Monthly or less 04/27/2024 Q2: How many drinks containi ng alcohol do you have on a typical day when you are drinking? 1 or 2 04/27/2024 Q3: How often do you have si x or more drinks on one occasion? 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 Lesion at the junction of the posterior medial and posterior lateral peripheral zone in the mid gland is at high suspicion for malignancy with a PI-RADS score of 4. EPE grade 1 Electronically signed by: Roopa Silvestre M.D. Narrative 07/02/2024 12:53 PM FINANCIAL ACCOUNTING MANAGER EXAMINATION: MAGNETIC RESONANCE IMAGING OF THE PELVIS WITHOUT AND WITH CONTRAST HISTORY: Elevated serum PSA, value unknown TECHNIQUE: MR imaging of the prostate gland was performed with a torso phased array coil prior to and following administration of intravenous gadolinium. Protocol: Prostate 3T Contrast: gadoterate 20 mL COMPARISON: CT abdomen and pelvis 10/25/2019 and 04/01/2017 FINDINGS: Prostate volume: 40 cc The prostate transition zone is enlarged with benign prostatic hyperplasia. The prostate was assessed using the PI-RADS version 2.1 scoring system. The following lesions are of at least intermediate suspicion (PI-RADS 3 or greater): Lesion 1: Side: left Location: Junction of posterior medial and posterior lateral Zone: peripheral zone Craniocaudal: mid gland Taylor images: series 10, image 50 Size: 0.1 mL; largest axial dimensions 0.8 x 0.5 centimeters Extraprostatic extension: - tumor contact length with prostate margin: 8 mm - margin bulge/irregularity: yes - rectoprostatic angle obliteration: no - neurovascular bundle asymmetry: no - gross extraprostatic extension: no - overall EPE grade: 1 (either curvilinear contact length > 15 mm OR margin irregularity/bulge) T2WI score: 4 DWI score: 4 DCE: negative Overall PI-RADS v2.1 assessment: 4 Staging Information: No enlarged lymph nodes are identified. No suspicious osseous lesions are identified. There are some small enhancing lesions in the right iliac bone on series 48 image 21 and image [address] correlate from 2017 and likely reflect small hemangiomas or benign fibro-osseous lesions and are overall unchanged in size. Procedure Note Roopa Silvestre MD - 07/02/2024 EXAMINATION: MAGNETIC RESONANCE IMAGING OF THE PELVIS WITHOUT AND WITH CONTRAST HISTORY: Elevated serum PSA, value unknown TECHNIQUE: MR imaging of the prostate gland was performed with a torso phased array coil prior to and following administration of intravenous gadolinium. Protocol: Prostate 3T Contrast: gadoterate 20 mL COMPARISON: CT abdomen and pelvis 10/25/2019 and 04/01/2017 FINDINGS: Prostate volume: 40 cc The prostate transition zone is enlarged with benign prostatic hyperplasia. The prostate was assessed using the PI-RADS version 2.1 scoring system. The following lesions are of at least intermediate suspicion (PI-RADS 3 or greater): Lesion 1: Side: left Location: Junction of posterior medial and posterior lateral Zone: peripheral zone Craniocaudal: mid gland Taylor images: series 10, image 50 Size: 0.1 mL; largest axial dimensions 0.8 x 0.5 centimeters Extraprostatic extension: - tumor contact length with prostate margin: 8 mm - margin bulge/irregularity: yes - rectoprostatic angle obliteration: no - neurovascular bundle asymmetry: no - gross extraprostatic extension: no - overall EPE grade: 1 (either curvilinear contact length > 15 mm OR margin irregularity/bulge) T2WI score: 4 DWI score: 4 DCE: negative Overall PI-RADS v2.1 assessment: 4 Staging Information: No enlarged lymph nodes are identified. No suspicious osseous lesions are identified. There are some small enhancing lesions in the right iliac bone on series 48 image 21 and image [address] correlate from 2017 and likely reflect small hemangiomas or benign fibro-osseous lesions and are overall unchanged in size. IMPRESSION: 1. Lesion at the junction of the posterior medial and posterior lateral peripheral zone in the mid gland is at high suspicion for malignancy with a PI-RADS score of 4. EPE grade 1 Electronically signed by: Roopa Silvestre M.D. [facility] Elijah Oscar MD IMG MRI PROCEDURES Final Resul t documented in this encounter Visit Diagnoses Diagnosis Raised prostate specific antigen- Primary Elevated prostate specific antigen (PSA) Raised prostate specific antigen Elevated prostate specific antigen (PSA) documented in this encounter Care Teams Enamel Burner Relationship Specialty Start Date End Date Preston Gusman PA [address] [place] [address] [address] [facility] [place] [address] PCP - General Internal Medicine 01/14/22 Caden Dhaliwal MD [address] [place] [address] [place] [address] Consulting Physician Cardiology 04/14/22 Antoni Gamez MD [address] [place] [address] [address] [facility] [facility] [place] [address] Referring Physician Ophthalmology 04/18/23 Nithin Roldan MD [phone] [place] [address] Referring Physician Orthopedic Surgery 04/27/24 Sanaz Greenwood RN [address] [place] [address] [employer] [id number] Technical Aid 08/09/24 09/11/24 Sherry Stallworth, HYPOID GEAR TESTER [address] [facility] [address] [place] [address] Metal Roofer 08/09/24 08/16/24 Willie Gonzales MD [id number] [facility] DEPT ORTHOPAEDIC SURGERY, [facility] [address] [place] [address] Consulting Physician Orthopedic Surgery 12/17/24 Cristina Moreno, BRENDA [address] IM INFECTIOUS DISEASES, [facility] [address] [place] [address] Nurse Practitioner Infectious Diseases 12/17/24 documented as of this encounter
--- OUTSIDE RECORDS SUMMARY | 2025-03-03 01:51 | XMS_ITS | Clinical Summary ---
Author Organization [facility] Address [address] [place] [address] Care Team Providers Care Assayer Helper Name Role Phone Preston Gusman Primary Care Provider Caden Dhaliwal MD Unavailable [phone] Antoni Gamez MD Unavailable [phone] Nithin Roldan MD Unavailable [phone] Willie Gonzales MD Unavailable Cristina Moreno NP Unavailable [phone] Allergies Active Allergy Reactions Criticality Noted Date Comments Clindamycin Rash Medium 05/12/2017 Lisinopril Cough Reaction: Cough, Medications lancets misc check blood sugar once a day 100 11 9 Active blood glucose diagnostic strip check blood sugar once a day 100 11 9 Active sildenafiL (VIAGRA) 100 mg tablet TAKE 1 TABLET BY MOUTH DAILY NEEDED FOR ED/SEXUAL RELATIONS 12 tablet 11 4 Active valsartan-hydro chlorothiazide (DIOVAN-HCT) 320-25 mg per tablet Take 1 tablet by mouth daily 90 tablet 3 4 Active atorvastatin (LIPITOR) 20 mg tablet Take 1 tablet (20 mg total) by mouth daily 90 tablet 3 4 Active omeprazole (PriLOSEC) 40 mg capsule Take 1 capsule (40 mg total) by mouth daily 90 capsule 3 4 Active apixaban (ELIQUIS) 5 mg tablet Take 1 tablet (5 mg total) by mouth 2 (two) times a day 180 tablet 3 5 Active flecainide (TAMBOCOR) 100 mg tablet Take 1 tablet (100 mg total) by mouth 2 (two) times a day 180 tablet 3 5 Active metFORMIN XR (GLUCOPHAGE XR) 500 mg 24 hr tablet TAKE 4 TABLETS BY MOUTH EVERY NIGHT 360 tablet 2 5 Active dilTIAZem CD (CARDIZEM CD) 300 mg 24 hr capsule Take 1 capsule (300 mg total) by mouth daily 90 capsule 3 5 12/18/19 26 Active cloNIDine (CATAPRES) 0.1 mg tablet TAKE 1 TABLET(0.1 MG) BY MOUTH EVERY NIGHT 90 tablet 3 5 Active albuterol HFA (PROVENTIL HFA,VENTOLIN HFA,PROAIR HFA) 90 mcg/actuation inhaler Inhale 2 puffs every 4 (four) hours as needed (cough) 1 each 1 5 Active methylPREDNISol one (MEDROL DOSEPACK) 4 mg Dosepack Take as directed on package. 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 Left shoulder pain 06/08/2024 Personal history of colonic polyps 01/09/2024 Laryngeal spasm 11/19/2022 Assessment & Plan (11/19/2022 9:35 AM CDT): Continue omeprazole 30-60 minutes before first meal Start Pepcid in 6-8 weeks if Lifestyle modifications do not resolve the throat clearing Pepcid Famotidine 40 mg at bedtime Laryngopharyngeal reflux discussed and Handout provided B12 deficiency 10/13/2022 Mixed hyperlipidemia 05/18/2021 Assessment & Plan (12/16/2024 5:21 PM CDT): Counseled on heart healthy diet exercise Assessment & Plan (08/17/2024 7:38 AM CDT): Counseled on heart healthy diet exercise Assessment & Plan (04/26/2024 9:53 AM DESIGNATED BROKER): Counseled on heart healthy diet exercise 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 He is asymptomatic, but his recent pulse elevated to 121 bpm. Plan today: Increase diltiazem to 360 mg daily for better rate control.Provide a 30-day prescription for diltiazem at increased dose; consider longer term refill if appropriate at followup with PCP in this office 12/17/2024 -Schedule a nurse visit in two weeks to monitor heart rate and blood pressure. He should report any chest pain or shortness of breath immediately. Recommend Inform the service writer about the medication adjustment. Assessment & Plan (09/14/2021 9:10 AM CDT): Controlled and see's dr dhaliwal Assessment & Plan (03/16/2021 1:45 PM CDT): paf abd stabke rate and see dr dhaliwal Assessment & Plan (11/08/2019 9:40 AM CDT): paf contarolled and see's card for Assessment & Plan (01/30/2019 9:13 AM CDT): See's zeeshan blackwell do ekg to check on,ekg at [facility] at 57. [place] -30 no acute changds Assessment & Plan (01/26/2018 8:59 AM CDT): Cont on meds and see's card yr'ly. Assessment & Plan (08/01/2017 8:24 AM CDT): See's card. Assessment & Plan (01/24/2017 8:51 AM CDT): Apparent reg rhythm now and seing card in near future Class 1 obesity due to exces s calories with serious comorbidity and body mass index (BMI) of 31.0 to 31.9 in adult 04/29/2015 Overview (08/19/2016): Obesity (BMI 30.0-34.9) Assessment & Plan (02/20/2025 9:42 AM CDT): The patient was counseled on the importance of maintaining a healthy weight and the risks of obesity. Weight loss recommended. Assessment & Plan (09/14/2021 9:11 AM CDT): Work to drop Assessment & Plan (03/16/2021 1:46 PM CDT): worlk to keep wt down Periodic limb movement disorder 04/29/2015 Overview (08/19/2016): Periodic limb movement Assessment & Plan (01/30/2019 9:04 AM CDT): No complants and no changes Obstructive sleep apnea syndrome 04/29/2015 Overview (08/19/2016): Obstructive sleep apnea syndrome Assessment & Plan (01/26/2018 8:59 AM CDT): Not tredated and discussed causitive factor to lead to recurrence of a fib./plans on retstarting Assessment & Plan (01/24/2017 8:54 AM CDT): Lax on use of cpap and off not fro a long time. Suggest s eeing sleep md once things settle. Untreated your risk for a fib increases Benign prostatic hyperplasia with urinary obstru ction 11/27/2013 Overview (08/19/2016): BPH W URINARY OBSTRUCTN Assessment & Plan (09/14/2021 9:11 AM CDT): Feels pee Going well no issues Assessment & Plan (03/16/2021 1:49 PM CDT): Check psa on return Assessment & Plan (11/08/2019 9:48 AM CDT): Check psa on return Assessment & Plan (01/26/2018 9:00 AM CDT): Check psa on rreturn and ocnt meds as on Assessment & Plan (01/24/2017 8:51 AM CDT): Urination pattern stable with psa stable over se v eral yrs and now 2.09 Type 2 diabetes mellitus with hyperlipidemia Overview (08/20/2016): DMII WO CMP NT ST UNCNTR Assessment & Plan (02/20/2025 9:41 AM CDT): The patient was counseled on a heart-healthy, diabetic-friendly diet, as well as life-style modification. Education provided on the diagnosis and risks of the disease. We will continue to monitor routine labs. Additionally, the patient was counseled on routine diabetic eye exams, foot exams, and other preventive care. Assessment & Plan (12/16/2024 5:01 PM CDT): The patient was counseled on a heart-healthy, diabetic-friendly diet, as well as life-style modification. Education provided on the diagnosis and risks of the disease. We will continue to monitor routine labs. Additionally, the patient was counseled on routine diabetic eye exams, foot exams, and other preventive care. Assessment & Plan (08/17/2024 7:36 AM CDT): The patient was counseled on a heart-healthy, diabetic-friendly diet, as well as life-style modification. Education provided on the diagnosis and risks of the disease. We will continue to monitor routine labs. Additionally, the patient was counseled on routine diabetic eye exams, foot exams, and other preventive care. Assessment & Plan (04/26/2024 9:53 AM DESIGNATED BROKER): The patient was counseled on a heart-healthy, diabetic-friendly diet, as well as life-style modification. Education provided on the diagnosis and risks of the disease. We will continue to monitor routine labs. Additionally, the patient was counseled on routine diabetic eye exams, foot exams, and other preventive care. Assessment & Plan (04/04/2024 10:59 AM DESIGNATED BROKER): The patient was counseled on a heart-healthy, diabetic-friendly diet, as well as life-style modification. Education provided on the diagnosis and risks of the disease. We will continue to monitor routine labs. Additionally, the patient was counseled on routine diabetic eye exams, foot exams, and other preventive care. Assessment & Plan (10/21/2023 7:26 AM CDT): The patient was counseled on a heart-healthy, diabetic-friendly diet, as well as life-style modification. Education provided on the diagnosis and risks of the disease. We will continue to monitor routine labs. Additionally, the patient was counseled on routine diabetic eye exams, foot exams, and other preventive care. Assessment & Plan (04/18/2023 8:04 AM DESIGNATED BROKER): The patient was counseled on a heart-healthy, diabetic-friendly diet, as well as life-style modification. Education provided on the diagnosis and risks of the disease. We will continue to monitor routine labs. Additionally, the patient was counseled on routine diabetic eye exams, foot exams, and other preventive care. Assessment & Plan (10/13/2022 6:54 AM CDT): The patient was counseled on a heart-healthy, diabetic-friendly diet, as well as life-style modification. Education provided on the diagnosis and risks of the disease. We will continue to monitor routine labs. Additionally, He was counseled on routine diabetic eye exams, foot exams, and other preventive care. Assessment & Plan (04/14/2022 7:55 AM DESIGNATED BROKER): The patient was counseled on a heart-healthy, diabetic-friendly diet, as well as life-style modification. Education provided on the diagnosis and risks of the disease. We will continue to monitor routine labs. Additionally, He was counseled on routine diabetic eye exams, foot exams, and other preventive care. Assessment & Plan (09/14/2021 9:10 AM CDT): ldl at 57 and great. a1c at 6.5 and Good congtorlled niddmYour cholesterol in the form of ldl (bad) cholesterol,hdl(good) cholesterol and triglycerides are monitored. The triglycerides respond to reduction/controll of your simple carbs/sugars In such items as sugared soda/sweet tea along with fruit juices(containing natural sugar) even if no added sugar is added. LDL cholesterol is reduced with reducing daily intake of fats and agustin. saturated fats. The monosaturated fats like olive oil are not harmful except in the calories they contained. Whole milk cheese needs to be remembered along with whole milk products And limited.Diabetes management or controll revolves around several core concepts : weight controll,controlling the intake of rapidly absorbed sugars(read simple carbs that get rapidly absorbed such as sweetened tea,sugared soda,fruit juices or portions of fruit over 1/2 cup at a time) as well at the need to increase the sugar burned up through an n increase in your baseline activity.Breads,potatotes(white,yellow,sweet are all the same),most cereals and noodles all breakdown to sugar rapidly. This rapid breakdown or absorption challenges the body into handling this surge of sugar. The more these factors are controlled the more the sugar will be controlled. Assessment & Plan (03/16/2021 1:45 PM CDT): ldl at ldl at 49 adnkeep things same Your cholesterol in the form of ldl (bad) cholesterol,hdl(good) cholesterol and triglycerides are monitored. The triglycerides respond to reduction/controll of your simple carbs/sugars In such items as sugared soda/sweet tea along with fruit juices(containing natural sugar) even if no added sugar is added. LDL cholesterol is reduced with reducing daily intake of fats and agustin. saturated fats. The monosaturated fats like olive oil are not harmful except in the calories they contained. Whole milk cheese needs to be remembered along with whole milk products And limited. Assessment & Plan (08/11/2020 1:27 PM CDT): ldll at 53 and was 67 so I range to increase reversal changes keep ldl here . No meds changes. Your cholesterol in the form of ldl (bad) cholesterol,hdl(good) cholesterol and triglycerides are monitored. The triglycerides respond to reduction/controll of your simple carbs/sugars In such items as sugared soda/sweet tea along with fruit juices(containing natural sugar) even if no added sugar is added. LDL cholesterol is reduced with reducing daily intake of fats and agustin. saturated fats. The monosaturated fats like olive oil are not harmful except in the calories they contained. Whole milk cheese needs to be remembered along with whole milk products And limited. Assessment & Plan (03/06/2020 7:10 PM CDT): The patient was counseled on a heart-healthy, diabetic-friendly diet, as well as life-style modification. Education provided on the diagnosis and risks of the disease. We will continue to monitor routine labs. Additionally, He was counseled on routine diabetic eye exams, foot exams, and other preventive care. Assessment & Plan (11/08/2019 9:43 AM CDT): ldl 50 and great and no chagesYour cholesterol in the form of ldl (bad) cholesterol,hdl(good) cholesterol and triglycerides are monitored. The triglycerides respond to reduction/controll of your simple carbs/sugars In such items as sugared soda/sweet tea along with fruit juices(containing natural sugar) even if no added sugar is added. LDL cholesterol is reduced with reducing daily intake of fats and agustin. saturated fats. The monosaturated fats like olive oil are not harmful except in the calories they contained. Whole milk cheese needs to be remembered along with whole milk products And limited. Assessment & Plan (05/10/2019 8:17 AM DESIGNATED BROKER): a1c at 7.3 and ldl up to 89 both up and Forgot one chol meds so at 54 last and will not add more for now and the a1wc at this age shold be l ower but promises to drop wt and change sweets. So for now no med chages but add/adjsut next time if no progressYour cholesterol in the form of ldl (bad) cholesterol,hdl(good) cholesterol and triglycerides are monitored. The triglycerides respond to reduction/controll of your simple carbs/sugars In such items as sugared soda/sweet tea along with fruit juices(containing natural sugar) even if no added sugar is added. LDL cholesterol is reduced with reducing daily intake of fats and agustin. saturated fats. The monosaturated fats like olive oil are not harmful except in the calories they contained. Whole milk cheese needs to be remembered along with whole milk products And limited.Diabetes management or controll revolves around several core concepts : weight controll,controlling the intake of rapidly absorbed sugars(read simple carbs that get rapidly absorbed such as sweetened tea,sugared soda,fruit juices or portions of fruit over 1/2 cup at a time) as well at the need to increase the sugar burned up through an n increase in your baseline activity.Breads,potatotes(white,yellow,sweet are all the same),most cereals and noodles all breakdown to sugar rapidly. This rapid breakdown or absorption challenges the body into handling this surge of sugar. The more these factors are controlled the more the sugar will be controlled. Assessment & Plan (01/30/2019 9:04 AM CDT): ldl at 54 and great and no chabgesYour cholesterol in the form of ldl (bad) cholesterol,hdl(good) cholesterol and triglycerides are monitored. The triglycerides respond to reduction/controll of your simple carbs/sugars In such items as sugared soda/sweet tea along with fruit juices(containing natural sugar) even if no added sugar is added. LDL cholesterol is reduced with reducing daily intake of fats and agustin. saturated fats. The monosaturated fats like olive oil are not harmful except in the calories they contained. Whole milk cheese needs to be remembered along with whole milk products And limited. Assessment & Plan (01/26/2018 8:58 AM CDT): a1c at 7.7 and Going up over last Yr or Two. . Add actos 15 and add To meteforminl. checkurine on reutnrYour cholesterol in the form of ldl (bad) cholesterol,hdl(good) cholesterol and triglycerides are monitored. The triglycerides respond to reduction/controll of your simple carbs/sugars In such items as sugared soda/sweet tea along with fruit juices(containing natural sugar) even if no added sugar is added. LDL cholesterol is reduced with reducing daily intake of fats and agustin. saturated fats. The monosaturated fats like olive oil are not harmful except in the calories they contained. Whole milk cheese needs to be remembered along with whole milk products And limited.Diabetes management or controll revolves around several core concepts : weight controll,controlling the intake of rapidly absorbed sugars(read simple carbs that get rapidly absorbed such as sweetened tea,sugared soda,fruit juices or portions of fruit over 1/2 cup at a time) as well at the need to increase the sugar burned up through an n increase in your baseline activity.Breads,potatotes(white,yellow,sweet are all the same),most cereals and noodles all breakdown to sugar rapidly. This rapid breakdown or absorption challenges the body into handling this surge of sugar. The more these factors are controlled the more the sugar will be controlled.ldl at 60 and great. Assessment & Plan (01/24/2017 8:52 AM CDT): .a1c at 7.0 and stable but would benefit From droping to low 6.'s. On 3 metformin now and will sulggest to go to 4 a day.Diabetes management or controll revolves around several core concepts : weight controll,controlling the intake of rapidly absorbed sugars(read simple carbs that get rapidly absorbed such as sweetened tea,sugared soda,fruit juices or portions of fruit over 1/2 cup at a time) as well at the need to increase the sugar burned up through an n increase in your baseline activity.Breads,potatotes(white,yellow,sweet are all the same),most cereals and noodles all breakdown to sugar rapidly. This rapid breakdown or absorption challenges the body into handling this surge of sugar. The more these factors are controlled the more the sugar will be controlled. Primary hypertension 09/29/2013 Overview (08/20/2016): BENIGN HYPERTENSION Assessment & Plan (02/20/2025 9:43 AM CDT): Recommend DASH diet, heart healthy lifestyle, exercise. Discussed the risks of hypertension. Assessment & Plan (12/16/2024 5:01 PM CDT): Recommend DASH diet, heart healthy lifestyle, exercise. Discussed the risks of hypertension. Assessment & Plan (08/17/2024 7:36 AM CDT): Recommend DASH diet, heart healthy lifestyle, exercise. Discussed the risks of hypertension. Assessment & Plan (04/26/2024 9:53 AM DESIGNATED BROKER): Recommend DASH diet, heart healthy lifestyle, exercise. Discussed the risks of hypertension. Assessment & Plan (04/04/2024 11:00 AM DESIGNATED BROKER): Recommend DASH diet, heart healthy lifestyle, exercise. Discussed the risks of hypertension. Assessment & Plan (10/21/2023 7:26 AM CDT): Recommend DASH diet, heart healthy lifestyle, exercise. Discussed the risks of hypertension. Assessment & Plan (04/18/2023 8:04 AM DESIGNATED BROKER): Recommend DASH diet, heart healthy lifestyle, exercise. Discussed the risks of hypertension. Assessment & Plan (10/13/2022 6:54 AM CDT): Recommend DASH diet, heart-healthy lifestyle, exercise. Discussed the risks of hypertension. Assessment & Plan (04/14/2022 7:54 AM DESIGNATED BROKER): Recommend DASH diet, heart-healthy lifestyle, exercise. Discussed the risks of hypertension. Assessment & Plan (03/16/2021 1:46 PM CDT): The bp good and cont meds as on and Self check Hypertension, Medical treament revolves around weight control, salt management, and meds when necessary. long as weight loss is necessary and you are able to drop weight we can cont to monitor the blood pressure and not add meds. Once the weight is not changing then it becomes nesessary to add meds to be able to reach the goal bp. Assessment & Plan (08/11/2020 1:24 PM CDT): The bp dropped withadded new meds and a1dc better 6.6 and wqnt here con tmeds and watch diet. Hypertension, Medical treament revolves around weight control, salt management, and meds when necessary. long as weight loss is necessary and you are able to drop weight we can cont to monitor the blood pressure and not add meds. Once the weight is not changing then it becomes nesessary to add meds to be able to reach the goal bp.Diabetes management or controll revolves around several core concepts : weight controll,controlling the intake of rapidly absorbed sugars(read simple carbs that get rapidly absorbed such as sweetened tea,sugared soda,fruit juices or portions of fruit over 1/2 cup at a time) as well at the need to increase the sugar burned up through an n increase in your baseline activity.Breads,potatotes(white,yellow,sweet are all the same),most cereals and noodles all breakdown to sugar rapidly. This rapid breakdown or absorption challenges the body into handling this surge of sugar. The more these factors are controlled the more the sugar will be controlled. Assessment & Plan (03/06/2020 7:10 PM CDT): Recommend DASH diet, heart-healthy lifestyle, exercise. Discussed the risks of hypertension. Assessment & Plan (11/08/2019 9:41 AM CDT): The bp high nl and check agt home and no changes and a12c Up to 7.5 and neds to tighten or meds if goes h=up furtherHypertension, Medical treament revolves around weight control, salt management, and meds when necessary. long as weight loss is necessary and you are able to drop weight we can cont to monitor the blood pressure and not add meds. Once the weight is not changing then it becomes nesessary to add meds to be able to reach the goal bp.Diabetes management or controll revolves around several core concepts : weight controll,controlling the intake of rapidly absorbed sugars(read simple carbs that get rapidly absorbed such as sweetened tea,sugared soda,fruit juices or portions of fruit over 1/2 cup at a time) as well at the need to increase the sugar burned up through an n increase in your baseline activity.Breads,potatotes(white,yellow,sweet are all the same),most cereals and noodles all breakdown to sugar rapidly. This rapid breakdown or absorption challenges the body into handling this surge of sugar. The more these factors are controlled the more the sugar will be controlled. Assessment & Plan (05/10/2019 8:17 AM DESIGNATED BROKER): Top bp on h9gh acceptable and runs 128 at home with wt off will drop and no changes for nowHypertension, Medical treament revolves around weight control, salt management, and meds when necessary. long as weight loss is necessary and you are able to drop weight we can cont to monitor the blood pressure and not add meds. Once the weight is not changing then it becomes nesessary to add meds to be able to reach the goal bp. Assessment & Plan (03/15/2019 4:24 PM CDT): Recommend DASH diet, heart healthy lifestyle, exercise. Discussed the risks of hypertension. Assessment & Plan (01/30/2019 9:03 AM CDT): bp on high side and will stopthe losartan and start diovan and see if can't get lower. a1c at 6.7 and delinces added meds as plans on wt to drop itHypertension, Medical treament revolves around weight control, salt management, and meds when necessary. long as weight loss is necessary and you are able to drop weight we can cont to monitor the blood pressure and not add meds. Once the weight is not changing then it becomes nesessary to add meds to be able to reach the goal bp.Diabetes management or controll revolves around several core concepts : weight controll,controlling the intake of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 Description:CUSTOM IMPLANT 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 WHEEL 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 PART [id number] REV 02 Glenosphere 39 D Laterality L Implanted:Qty: 1 on 08/03/2024 by Willie Gonzales MD at [facility] Left: Shoulder [id number] 1437-1938 -A / / [id number] [id number] Description:CUSTOM IMPLANT CASE # [id number] POLISHING WHEEL SETTER PART [id number] REV 02 Baseplate Laterality L Implanted:Qty: 1 on 08/03/2024 by Willie Gonzales MD at [facility] Left: Shoulder [id number] [id number] -A / / [id number] Description:CUSTOM IMPLANT CASE # 38815 POLISHING WHEEL SETTER PART # [id number] REV 02 [employer] Stem Fracture Sz 12 L 130mm Humeral [id number] - [id number] - [id number] Implanted:Qty: 1 on 08/03/2024 by Willie Gonzales MD at [facility] Left: Shoulder [employer] [id number] 01/15/2029 [id number] / [id number] / [id number] [employer] Insert Humeral Retention Reverse Size 3/4 +6 Perform 39mm Combination [id number] - [id number] - [id number] Implanted:Qty: 1 on 08/03/2024 by Willie Gonzales MD at [facility] Left: Shoulder [employer] [id number] 01/28/2025 [id number] / [id number] / Explanted Type Area Inspector Returned Materials Device Identifier Shelf Expiration Date Model / Serial / Lot [employer] Falguni 180-224 Contour 6fr 28cm Taper Tip Bladder Alexis Low Profile Large Inner Latex Free - [id number] Implanted:Qty: 1 on 10/27/2019 by Santos Grimes MD at [facility] Explanted:Qty: 1 on 11/05/2019 by Santos Grimes MD Left: Ureter [employer] Falguni 06/04/2021 180-224 / / [id number] Procedures Procedure Name Priority Date/Time Associated Diagnosis Comments PSA SCREEN Routine 01/30/2025 6:18 AM CDT XR SHOULDER LEFT 2 OR MORE VIEWS Schedule Routine, Read Routine (OP Routine) 01/22/2025 10:26 AM CDT S/P orthopedic surgery, follow-up exam DIFFERENTIAL AUTO Routine 01/22/2025 8:5 0 AM CDT High risk medication use 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 CBC WITH AUTO DIFFERENTIAL Routine 01/22/2025 8:50 AM CDT High risk medication use 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 EGFR Routine 01/17/2025 6:26 AM CDT 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 High risk medication use DIFFERENTIAL AUTO Routine 01/17/2025 6:2 6 AM CDT 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 High risk medication use CRP (ACUTE PHASE) Routine 01/17/2025 6:2 6 AM CDT 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 High risk medication use ERYTHROCYTE SEDIMENTATION RATE Routine 01/17/2025 6:26 AM CDT 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 High risk medication use CBC WITH AUTO DIFFERENTIAL Routine 01/17/2025 6:26 AM CDT 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 High risk medication use COMPREHENSIVE METABOLIC PANEL Routine 01/17/2025 6:26 AM CDT 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 High risk medication use SURGICAL PATHOLOGY Routine 12/13/2024 12:00 AM CDT Skin neoplasm EGFR Routine 12/10/2024 6:50 AM CDT Type 2 diabetes mellitus with hyperlipidemia (HCC) DIFFERENTIAL AUTO Routine 12/10/2024 6:5 0 AM CDT Primary hypertension CBC WITH AUTO DIFFERENTIAL Routine 12/10/2024 6:50 AM CDT Primary hypertension COMPREHENSIVE METABOLIC PANEL Routine 12/10/2024 6:50 AM CDT Type 2 diabetes mellitus with hyperlipidemia (HCC) LIPID PANEL Routine 12/10/2024 6:50 AM CDT Mixed hyperlipidemia ALBUMIN CREATININE RATIO, URINE Routine 12/10/2024 6:50 AM CDT Type 2 diabetes mellitus with hyperlipidemia (HCC) HEMOGLOBIN A1C Routine 12/10/2024 6:50 AM CDT Type 2 diabetes mellitus with hyperlipidemia (HCC) PSA SCREEN Routine 12/10/2024 6:50 AM CDT DIABETIC EYE EXAM Routine 04/19/2024 COLONOSCOPY Routine 02/17/2024 HEPATITIS PANEL, ACUTE Routine 03/02/2021 10:00 AM CDT Encounter for hepatitis C screening test for low risk patient DIABETES FOOT EXAM Routine 05/12/2017 from Last 3 Months or Most Recently Relevant to Health Maintenance Results * PSA screen (01/30/2025 6:18 AM CDT) PSA-Total 3.53 <=6.20 ng/mL [facility] ([place]) Comment: Interpretive Data AGE SEX REFERENCE INTERVAL 0 minutes-150 years Female None 0 minutes-49 years Male None 50-59 years Male 0-3.90 60-69 years Male 0-5.40 70-79 years Male 0-6.20 80-150 years Male 0-6.20 The Melia PSA Total assay procedure was used. Results from different manufacturers or methods may not be comparable. Serial testing should be performed using the same method. Current interpretive data last revised 21. Blood 01/30/2025 6:18 AM CDT 01/30/2025 6:56 AM CDT us Hannah Oviedo MD LAB BLOOD ORDERABLES Final Res ult [facility] ([place]) [facility] [place] [address] * XR Shoulder Left 2 or More Views (01/22/2025 10:26 AM CDT) Anatomical Region Laterality Modality Upper Extremities, Shoulder Left Comp uted Radiography 01/22/2025 11:4 8 AM CDT Impressions 01/22/2025 12:42 PM CDT 1. 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 Dictated by: Danielle Hernandez MD The radiology attending physician has personally reviewed this study, and had reviewed and/or edited this written report and agrees with it. Electronically signed by: Kwasi Kim M.D. Narrative 01/22/2025 12:42 PM CDT EXAMINATION: XR SHOULDER LEFT 2 OR MORE VIEWS HISTORY: Arthroplasty follow-up FINDINGS: 4 radiographs of the left shoulder submitted for interpretation, comparison radiographs dated 10/25/2024. Postsurgical changes of reverse total left shoulder arthroplasty. Hardware is unchanged in alignment. No periprosthetic fractures or lucencies. Moderate left acromioclavicular osteoarthritis. Procedure Note Kwasi Kim MD PhD - 01/22/2025 EXAMINATION: XR SHOULDER LEFT 2 OR MORE VIEWS HISTORY: Arthroplasty follow-up FINDINGS: 4 radiographs of the left shoulder submitted for interpretation, comparison radiographs dated 10/25/2024. Postsurgical changes of reverse total left shoulder arthroplasty. Hardware is unchanged in alignment. No periprosthetic fractures or lucencies. Moderate left acromioclavicular osteoarthritis. IMPRESSION: 1. 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 Dictated by: Danielle Hernandez MD The radiology attending physician has personally reviewed this study, and had reviewed and/or edited this written report and agrees with it. Electronically signed by: Kwasi Kim M.D. Willie Gonzales MD IMG XR PROCEDURES Fin al Result * (ABNORMAL) Differential, auto (01/22/2025 8:50 AM CDT) Neutrophil abs 4.39 1.50 - 6.50 K/cumm Comment:Testing performed by : [facility], [address] [place] [address] Imm gran abs 0.04 0.00 - 0.10 K/cumm [facility] Comment:Testing performed by : [facility], [address] [place] [address] Lymphocyte abs 1.64 0.80 - 3.30 K/cumm [facility] Comment:Testing performed by : [facility], [address] [place] [address] Monocyte abs 0.97(H) 0.20 - 0.80 K/cumm [facility]NA [facility] Comment:Testing performed by : [facility], [address] [place] [address] Eosinophil abs 0.59(H) 0.00 - 0.50 K/cumm [facility] Comment:Testing performed by : [facility], [address] [place] [address] Basophil abs 0.10 0.00 - 0.10 K/cumm [facility] Comment:Testing performed by : [facility] 2, [address] [place] [address] Neutrophil pct 56.9 % [facility] Comment: Interpretive Data Percent cell count reference ranges are not reported, since discordance with absolute values may lead to misinterpretation of CBC data. Current Interpretive Data was last revised on 2017. Testing performed by: [facility] 2, [address] [place] [address] Imm gran pct 0.5 % [facility] Comment: Interpretive Data Percent cell count reference ranges are not reported, since discordance with absolute values may lead to misinterpretation of CBC data. Current Interpretive Data was last revised on 2017. Testing performed by: [facility] 2, [address] [place] [address] Lymphocyte pct 21.2 % [facility] Comment: Interpretive Data Percent cell count reference ranges are not reported, since discordance with absolute values may lead to misinterpretation of CBC data. Current Interpretive Data was last revised on 2017. Testing performed by: [facility], [address] [place] [address] Monocyte pct 12.5 % [facility] Comment: Interpretive Data Percent cell count reference ranges are not reported, since discordance with absolute values may lead to misinterpretation of CBC data. Current Interpretive Data was last revised on 2017. Testing performed by: [facility] 2, [address] [place] [address] Eosinophil pct 7.6 % [facility] Comment: Interpretive Data Percent cell count reference ranges are not reported, since discordance with absolute values may lead to misinterpretation of CBC data. Current Interpretive Data was last revised on 2017. Testing performed by: [place] [address] [place] [address] Basophil pct 1.3 % JEAN FRANCIS Comment: Interpretive Data Percent cell count reference ranges are not reported, since discordance with absolute values may lead to misinterpretation of CBC data. Current Interpretive Data was last revised on 2017. Testing performed by: [place] [address] [place] [address] Blood 01/22/2025 8:50 AM CDT 01/22/2025 8:51 AM CDT us Cristina Moreno NP LAB BLOOD ORDERABLES Final Resu lt [facility] [address] [facility] Department [place] [address] * (ABNORMAL) CBC with auto differential (01/22/2025 8:50 AM CDT) WBC 7.73 3.80 - 9.90 K/cumm Comment:Testing performed by : [place] [address] [place] [address] Hgb 12.3(L) 13.0 - 17.5 g/dL JEAN FRANCIS Comment:Testing performed by : [address] [place] [address] Hct 41.3 38.9 - 50.3 % JEAN FRANCIS Comment:Testing performed by : [address] [place] [address] Plt 328 150 - 400 K/cumm JEAN FRANCIS Comment:Testing performed by : [place] [address] [place] [address] MPV 10.1 9.1 - 12.3 fL [facility] Comment:Testing performed by : [facility] 2, [address] [place] [address] RBC 5.20 4.30 - 5.80 M/cumm [facility] Comment:Testing performed by : [facility], [address] [place] [address] MCV 79.4(L) 81.3 - 96.4 fL JEAN [facility] Comment:Testing performed by : [place] [address], [address] [place] [address] MCH 23.7(L) 27.1 - 33.3 pg JEAN [facility] Comment:Testing performed by : [place] [address], [address] [place] [address] MCHC 29.8(L) 32.3 - 35.7 g/dL JEAN [facility] Comment:Testing performed by : [place] [address], [address] [place] [address] RDW CV 16.5(H) 11.1 - 14.9 % JEAN [facility] Comment:Testing performed by : [place] [address] [place] [address] RDW SD 47.4 35.7 - 48.1 fL JEAN [facility] Comment:Testing performed by : [address] [place] [address] ANC Prelim 4.39 1.50 - 6.50 K/cumm JEAN [facility] Comment: Interpretive Data The rapid ANC is a preliminary automated count and may vary from the final ANC (Neut Abs) reported in the WBC differential that follows. Current interpretive data was last revised 2024. Testing performed by: [place] [address], [address] [place] [address] Blood 01/22/2025 8:50 AM CDT 01/22/2025 8:51 AM CDT Cristina Moreno ORTHOPEDIC SURGEON LAB BLOOD ORDERABLES Final Resu lt [facility]AN [facility] [address] [facility]. Department [place] [address] * eGFR (01/17/2025 6:26 AM CDT) eGFR >90 >=60 mL/min/1. 73 m2 Comment: Interpretive Data Reference Interval Normal >/= 90 mL/min/1.73m2 Mildly decreased* 60 - 89 mL/min/1.73m2 Mildly to moderately decreased 45 - 59 mL/min/1.73m2 Moderately to severely decreased 30 - 44 mL/min/1.73m2 Severely decreased 15 - 29 mL/min/1.73m2 Kidney Failure < 15 mL/min/1.73m2 *Relative to young adult level Estimated glomerular filtration rate is determined by the 2020 CKD-EPI equation recommended by the National Kidney Foundation (A Unifying Approach to GFR Estimation: Recommendations of the NKF-ASK Task Force on Reassessing the Inclusion of Race in Diagnosing Kidney Disease, JASN 2020). The CKD-EPI equation should not be used for patients with unstable renal function and has not been validated in children and those over 70. Current interpretive data was last reviewed 2021. Blood 01/17/2025 6:26 AM CDT 01/17/2025 7:12 AM CDT Cristina Moreno ORTHOPEDIC SURGEON LAB BLOOD ORDERABLES Final Resu lt [facility] ([place]) 1 [facility] [place] [address] * (ABNORMAL) Differential, auto (01/17/2025 6:26 AM CDT) Neutrophil abs 5.16 1.50 - 6.50 K/cumm Imm gran abs 0.09 0.00 - 0.10 K/cumm [facility] ([place]) Lymphocyte abs 2.88 0.80 - 3.30 K/cumm [facility] ([place]) Monocyte abs 1.55(H) 0.20 - 0.80 K/cumm [facility] ([place]) Eosinophil abs 0.69(H) 0.00 - 0.50 K/cumm [facility] ([place]) Basophil abs 0.14(H) 0.00 - 0.10 K/cumm [facility] ([place]) Neutrophil pct 49.1 % [facility] ([place]) Comment: Interpretive Data Percent cell count reference ranges are not reported, since discordance with absolute values may lead to misinterpretation of CBC data. Current Interpretive Data was last revised on 2017. Imm gran pct 0.9 % [facility] ([place]) Comment: Interpretive Data Percent cell count reference ranges are not reported, since discordance with absolute values may lead to misinterpretation of CBC data. Current Interpretive Data was last revised on 2017. Lymphocyte pct 27.4 % [facility] ([place]) Comment: Interpretive Data Percent cell count reference ranges are not reported, since discordance with absolute values may lead to misinterpretation of CBC data. Current Interpretive Data was last revised on 2017. Monocyte pct 14.7 % [facility] ([place]) Comment: Interpretive Data Percent cell count reference ranges are not reported, since discordance with absolute values may lead to misinterpretation of CBC data. Current Interpretive Data was last revised on 2017. Eosinophil pct 6.6 % [facility] ([place]) Comment: Interpretive Data Percent cell count reference ranges are not reported, since discordance with absolute values may lead to misinterpretation of CBC data. Current Interpretive Data was last revised on 2017. Basophil pct 1.3 % [facility] ([place]) Comment: Interpretive Data Percent cell count reference ranges are not reported, since discordance with absolute values may lead to misinterpretation of CBC data. Current Interpretive Data was last revised on 2017. Blood 01/17/2025 6:26 AM CDT 01/17/2025 7:12 AM CDT us Cristina Moreno NP LAB BLOOD ORDERABLES Final Resu lt [facility] ([place]) 1 [facility] [place] [address] * (ABNORMAL) CBC with auto differential (01/17/2025 6:26 AM CDT) WBC 10.51(H) 3.80 - 9.90 K/cumm Hgb 13.1 13.0 - 17.5 g/dL [facility] ([place]) Hct 42.9 38.9 - 50.3 % [facility] ([place]) Plt 359 150 - 400 K/cumm [facility] ([place]) MPV 10.7 9.1 - 12.3 fL [facility] ([place]) RBC 5.50 4.30 - 5.80 M/cumm [facility] ([place]) MCV 78.0(L) 81.3 - 96.4 fL [facility] ([place]) MCH 23.8(L) 27.1 - 33.3 pg [facility] ([place]) MCHC 30.5(L) 32.3 - 35.7 g/dL [facility] ([place]) RDW CV 16.4(H) 11.1 - 14.9 % [facility] ([place]) RDW SD 46.0 35.7 - 48.1 fL [facility] ([place]) NRBC abs 0.00 0.00 - 0.01 K/cumm [facility] ([place]) Blood 01/17/2025 6:26 AM CDT 01/17/2025 7:12 AM CDT us Cristina Moreno ORTHOPEDIC SURGEON LAB BLOOD ORDERABLES Final Resu lt [facility] ([place]) 1 [facility] [place] [address] * Erythrocyte sedimentation rate (01/17/2025 6:26 AM CDT) Pathologist [facility] Erythrocyte sedimentation rate 16 1 - 20 mm/hr Blood 01/17/2025 6:26 AM CDT 01/17/2025 7:12 AM CDT us Cristina Moreno ORTHOPEDIC SURGEON LAB BLOOD ORDERABLES Final Resu lt [facility] ([place]) 1 [facility] [place] [address] * CRP (acute phase) (01/17/2025 6:26 AM CDT) CRP 3.6 <=10.0 mg/L [facility] ([place]) Blood 01/17/2025 6:26 AM CDT 01/17/2025 7:12 AM CDT Cristina Moreno ORTHOPEDIC SURGEON LAB BLOOD ORDERABLES Final Resu lt Performing Organization Address City/[facility]/ZIP Co de Phone Number [facility] ([place]) 1 [facility] [place] [address] * Comprehensive metabolic panel (01/17/2025 6:26 AM CDT) Sodium 141 135 - 145 mmol/L [facility] ([place]) Potassium, pl 4.0 3.3 - 4.9 mmol/L [facility] ([place]) Chloride 105 97 - 110 mmol/L [facility] ([place]) CO2 24 22 - 32 mmol/L [facility] ([place]) Anion gap 12 2 - 15 mmol/L [facility] ([place]) BUN 18 6 - 25 mg/dL [facility] ([place]) Creatinine 0.88 0.80 - 1.30 mg/dL [facility] ([place]) Glucose 146 70 - 199 mg/dL [facility] ([place]) Comment: Interpretive Data Fasting glucose >/= 126 mg/dl is diagnostic for diabetes. Fasting is defined as no caloric intake for at least 8 hours. Fasting glucose between 100 mg/dl to 125 mg/dl is diagnostic of prediabetes. In a patient with classic symptoms of hyperglycemia or hyperglycemic crisis, a random glucose >/= 200 mg/dl is diagnostic for diabetes. In the absence of unequivocal hyperglycemia, results should be confirmed by repeat testing. The classification and Diagnosis of Diabetes Diabetes Care 2021; 46: S19-S40. Current interpretive data was last revised 2022. Calcium 9.7 8.5 - 10.3 mg/dL [facility] ([place]) Bilirubin, total 0.8 0.1 - 1.2 mg/dL [facility] ([place]) Protein, pl 7.5 6.5 - 8.5 g/dL [facility] ([place]) Albumin 4.3 3.5 - 5.0 g/dL [facility] ([place]) Alk phos 111 40 - 130 Units/L [facility] ([place]) ALT 14 7 - 55 Units/L [facility] ([place]) AST 18 10 - 50 Units/L [facility] ([place]) Blood 01/17/2025 6:26 AM CDT 01/17/2025 7:12 AM CDT us Cristina Moreno ORTHOPEDIC SURGEON LAB BLOOD ORDERABLES Final Resu lt [facility] ([place]) [facility] [place] [address] * Surgical pathology (12/13/2024 12:00 AM CDT) Tissue (Skin, punch biopsy) 12/13/2024 12/14/2024 8:05 AM CDT [facility] - 12/19/2024 9:41 AM CDT EPIC results best viewed via link to PDF [facility] [address] [place] [address], [address] [address] [email or web address] Note to Patients: This report may contain a detailed description of human tissue sent by a health care provider to the laboratory for pathologic evaluation. The content of this report is essential for diagnosis and may provide important critical findings. This information may be unfamiliar to patients to review without a medical professional present. It is advised that the patient review this report in the presence of a health care provider who can answer questions and explain the details. FINAL REPORT Patient Information: PATIENT NAME: HITESH FRYE SEX: M : 1955 (Age: 69) Specimen Information: COLLECTED: 12/13/2024 RECEIVED: 12/14/2024 REPORTED: 12/19/2024 Submitting Physician Information: Sabine Mario, [address], Medical Office Building [address], [address] [place] [address], DERMATOPATHOLOGY REPORT RESULTS DIAGNOSIS: A. SKIN, RIGHT LATERAL CENTRAL BACK LATERAL, PUNCH BIOPSY: DERMAL MELANOCYTIC NEVUS B. SKIN, RIGHT LATERAL CENTRAL BACK MEDIAL, PUNCH BIOPSY: COMPOUND MELANOCYTIC NEVUS, LENTIGINOUS TYPE, PROBABLE Note: The lesion appears rubbed and is present at the edge of the biopsy. If this is a partial biopsy of a larger clinical lesion, a repeat biopsy could be considered to ensure the findings are operations support representative of the entire lesion. Multiple sections have been cut and studied. A MART-1 immunohistochemical stain was performed to assess the distribution of melanocytes in the lesion and confirms the histologic impression. sxt/lac By this signature, I attest that the above diagnosis is based upon my personal examination of the slides(and/or other material indicated in the diagnosis). Flora Griffin M.D. Report Electronically Reviewed and Signed Out By Flora Griffin M.D. 12/19/2024 09:41:59 CLINICAL INFORMATION A-B. R/O AK, DN, BCC, SCC, SK SPECIMEN DATA MICROSCOPIC DESCRIPTION: A. There are uniform nests, cords and strands of small, monomorphous melanocytes within the dermis. (D22.9) B. There is a proliferation of enlarged monomorphous melanocytes arranged as solitary units and small nests within the epidermis, at the dermo-epidermal junction and within the papillary dermis. (D22.9) GROSS DESCRIPTION: A. Received in a formalin-containing bottle is a cylindrical piece of brown, finely scaling skin and adipose tissue measuring 0.2 by 0.2 by 0.1 cm. The surgical margin is inked blue. The specimen is submitted entirely in a single cassette. Also within the bottle is a superficial fragment of yi, finely scaling, and hair-bearing skin measuring 0.3 by 0.1 by 0.1 cm. The surgical margin is inked blue. The specimen is submitted entirely in a single cassette. Due to shrinkage, measurements may be different than those at time of procedure. B. Received in a formalin-containing bottle is a cylindrical piece of brown, finely scaling skin and adipose tissue measuring 0.2 by 0.2 by 0.2 cm. The surgical margin is inked blue. The specimen is submitted entirely in a single cassette. Due to shrinkage, measurements may be different than those at time of procedure. asif/mat ICD-9 ZSD.808 Clerical Data A; 48002 B; 83950, 18264-GG The characteristics of special, immunohistochemical, and immunofluorescence stains and in-situ hybridization tests performed by the [facility] were deemed acceptable in ongoing business quality assurance analyst measures and in compliance with regulations drawn from the Clinical Laboratory Improvement Act ro4367 (CLIA '88). Control reactions for all stains performed were deemed adequate and appropriate by a pathologist prior to evaluation of patient tissue. Some diagnoses were rendered with the assistance of laboratory-developed tests utilizing analyte-specific reagents; the performance characteristic of these tests were determined by [facility] and are not cleared or approved by the [place] Food an Drug administration. Laboratory developed test may only be performed in a facility that is certified by the [facility] as a high-complexity laboratory under CLIA '88. These tests are used for clinical purposes and are not investigational. Sabine Mario NP LAB PATHOLOGY ORD ERABLES Final Result [facility] [address] [place] [id number] * eGFR (12/10/2024 6:50 AM CDT) eGFR 82 >=60 mL/min/1. 73 m2 Comment: Interpretive Data Reference Interval Normal >/= 90 mL/min/1.73m2 Mildly decreased* 60 - 89 mL/min/1.73m2 Mildly to moderately decreased 45 - 59 mL/min/1.73m2 Moderately to severely decreased 30 - 44 mL/min/1.73m2 Severely decreased 15 - 29 mL/min/1.73m2 Kidney Failure < 15 mL/min/1.73m2 *Relative to young adult level Estimated glomerular filtration rate is determined by the 2020 CKD-EPI equation recommended by the National Kidney Foundation (A Unifying Approach to GFR Estimation: Recommendations of the NKF-ASK Task Force on Reassessing the Inclusion of Race in Diagnosing Kidney Disease, JASN 2021). The CKD-EPI equation should not be used for patients with unstable renal function and has not been validated in children and those over 70. Current interpretive data was last reviewed 2021. Blood 12/10/2024 6:50 AM CDT 12/10/2024 8:06 AM CDT Preston PENNY LAB BLOOD ORDERABLES Fi nal Result [facility] ([place]) [facility] [place] [address] * (ABNORMAL) Differential, auto (12/10/2024 6:50 AM CDT) Neutrophil abs 3.76 1.50 - 6.50 K/cumm Imm gran abs 0.06 0.00 - 0.10 K/cumm [facility]) Lymphocyte abs 2.13 0.80 - 3.30 K/cumm [facility]) Monocyte abs 2.09(H) 0.20 - 0.80 K/cumm [facility]) Eosinophil abs 0.49 0.00 - 0.50 K/cumm [facility]) Basophil abs 0.09 0.00 - 0.10 K/cumm [facility]) Neutrophil pct 43.7 % [facility] ([place]) Comment: Interpretive Data Percent cell count reference ranges are not reported, since discordance with absolute values may lead to misinterpretation of CBC data. Current Interpretive Data was last revised on 2017. Imm gran pct 0.7 % [facility]) Comment: Interpretive Data Percent cell count reference ranges are not reported, since discordance with absolute values may lead to misinterpretation of CBC data. Current Interpretive Data was last revised on 2017. Lymphocyte pct 24.7 % [facility] ([place]) Comment: Interpretive Data Percent cell count reference ranges are not reported, since discordance with absolute values may lead to misinterpretation of CBC data. Current Interpretive Data was last revised on 2017. Monocyte pct 24.2 % [facility] ([place]) Comment: Interpretive Data Percent cell count reference ranges are not reported, since discordance with absolute values may lead to misinterpretation of CBC data. Current Interpretive Data was last revised on 2017. Eosinophil pct 5.7 % [facility] ([place]) Comment: Interpretive Data Percent cell count reference ranges are not reported, since discordance with absolute values may lead to misinterpretation of CBC data. Current Interpretive Data was last revised on 2017. Basophil pct 1.0 % [facility] ([place]) Comment: Interpretive Data Percent cell count reference ranges are not reported, since discordance with absolute values may lead to misinterpretation of CBC data. Current Interpretive Data was last revised on 2017. Blood 12/10/2024 6:50 AM CDT 12/10/2024 8:06 AM CDT us Preston PENNY LAB BLOOD ORDERABLES Fi nal Result [facility] ([place]) [facility] [place] [address] * PSA screen (12/10/2024 6:50 AM CDT) PSA-Total 3.05 <=6.20 ng/mL [facility] ([place]) Comment: Interpretive Data AGE SEX REFERENCE INTERVAL 0 minutes-150 years Female None 0 minutes-49 years Male None 50-59 years Male 0-3.90 60-69 years Male 0-5.40 70-79 years Male 0-6.20 80-150 years Male 0-6.20 The Melia PSA Total assay procedure was used. Results from different manufacturers or methods may not be comparable. Serial testing should be performed using the same method. Current interpretive data last revised 21. Blood 12/10/2024 6:50 AM CDT 12/10/2024 8:06 AM CDT us Hannah Oviedo MD LAB BLOOD ORDERABLES Final Res ult [facility] [place] [address] * (ABNORMAL) CBC with auto differential (12/10/2024 6:50 AM CDT) Pathologist [facility] WBC 8.62 3.80 - 9.90 K/cumm Hgb 13.0 13.0 - 17.5 g/dL [facility] Hct 43.0 38.9 - 50.3 % [facility] Plt 328 150 - 400 K/cumm [facility]) MPV 10.4 9.1 - 12.3 fL [facility] RBC 5.47 4.30 - 5.80 M/cumm [facility] MCV 78.6(L) 81.3 - 96.4 fL [facility] MCH 23.8(L) 27.1 - 33.3 pg [facility] MCHC 30.2(L) 32.3 - 35.7 g/dL [facility]) RDW CV 15.1(H) 11.1 - 14.9 % [facility] RDW SD 42.7 35.7 - 48.1 fL [facility] NRBC abs 0.00 0.00 - 0.01 K/cumm [facility]) Blood 12/10/2024 6:50 AM CDT 12/10/2024 8:06 AM CDT Preston PENNY LAB BLOOD ORDERABLES nal Result [facility] ([place]) [facility] [place] [address] * Albumin Creatinine Ratio, Urine (12/10/2024 6:50 AM CDT) [facility] Albumin Ur <12.0 mg/L Comment: Interpretive Data No reference range established. Current interpretive data was last revised 2018. Testing performed by: [facility], [address] [place] [address], [place]., [address] Creatinine Ur 96.1 mg/dL [facility] ([place] Comment: Interpretive Data No reference range established. Current interpretive data was last revised 2018. Testing performed by: [facility], [address] [place] [address]., [address] Albumin Creatinine Ratio, Ur <12 1 - 29 mg/g [facility] ([place]) Comment:Testing performed by : [facility], [address] [place] [address]., [address] Urine 12/10/2024 6:50 AM CDT 12/10/2024 9:35 AM CDT Preston PENNY LAB URINE ORDERABLES Fi nal Result Performing Organization Address [facility] Co de Phone Number [facility] ([place]) [address] [place] [address] Department [place] [employer] [place] [address] * (ABNORMAL) Hemoglobin A1c (12/10/2024 6:50 AM CDT) Pathologist [facility] Hgb A1C 6.8(H) 4.0 - 5.6 % [facility] Estimated Average Glucose 148 mg/dL [facility] Comment: The ADA recommends reporting an estimated Average Glucose (eAG) with all Hemoglobin A1c results using the equation derived from a study of 507 normal and diabetic adults. Minority populations were underrepresented and children were not included. (Diabetes Care 31:5032-6183, 2008). The eAG is not equivalent to a fasting glucose. Testing performed by: [facility], [facility], [place], [address] Blood 12/10/2024 6:50 AM CDT 12/10/2024 8:06 AM CDT Preston PENNY LAB BLOOD ORDERABLES Fi nal Result Performing Organization Address City/[facility] Co de Phone Number [facility] ([place] [address] [place] [address] Department [place] [employer] [place] [address] * (ABNORMAL) Lipid panel (12/10/2024 6:50 AM CDT) Cholesterol 114 30 - 199 mg/dL [facility] ([place]) Comment: Interpretive Data Ages < or = 19 years Acceptable: <170 mg/dL Borderline high: 170-199 mg/dL High: >or= 200 mg/dL Ages > or = 20 years Desirable: <200 mg/dL Borderline high: 200-239 mg/dL High: >or= 240 mg/dL Literature References: 1. Expert Panel on Integrated Guidelines for Cardiovascular Health and Risk Reduction in Children and Adolescents. Pediatrics 2011;128:S213 2. NCEP Expert Panel. Circulation 2004;110:227 Current Interpretive Data was last revised on 2018. Triglycerides 135 <=149 mg/dL [facility] ([place]) Comment: Interpretive Data Ages < or = 9 years Acceptable: <75 mg/dL Borderline high: 75-99 mg/dL High: >or= 100 mg/dL Ages 10 to 20 years Acceptable: <90 mg/dL Borderline high: 90-129 mg/dL High: >or= 130 mg/dL Ages > or = 20 years Desirable: <150 mg/dL Borderline high: 150-199 mg/dL High: 200-499 mg/dL Very high: >or= 499 mg/dL Literature References: 1. Expert Panel on Integrated Guidelines for Cardiovascular Health and Risk Reduction in Children and Adolescents. Pediatrics 2011;128:S213 2. NCEP Expert Panel. Circulation 2004;110:227 Current Interpretive Data was last revised on 2018. HDL 34(L) >=40 mg/dL [facility] ([place]) Comment: Interpretive Data Ages < or = 19 years Acceptable: >45 mg/dL Borderline low: 40-45 mg/dL Low: <40 mg/dL Ages > or = 20 years Desirable: >or= 60 mg/dL Low: <40 mg/dL Literature References: 1. Expert Panel on Integrated Guidelines for Cardiovascular Health and Risk Reduction in Children and Adolescents. Pediatrics 2011;128:S213 2. NCEP Expert Panel. Circulation 2004;110:227 Current Interpretive Data was last revised on 2018. LDL, calculated 56 <=129 mg/dL [facility] ([place]) Comment: Interpretive Data Ages < or = 19 years Acceptable: <110 mg/dL Borderline high: 110-129 mg/dL High: >or= 130 mg/dL Ages > or = 20 years Optimal: <100 mg/dL Near optimal: 100-129 mg/dL Borderline high: 130-159 mg/dL High: >160 mg/dL Calculated using the Solitario LDL-C estimating equation. This equation was implemented on 2024. Prior to this date LDL-C was estimated using the Friedewald equation. Literature References: 1. Expert Panel on Integrated Guidelines for Cardiovascular Health and Risk Reduction in Children and Adolescents. Pediatrics 2011;128:S213 2. NCEP Expert Panel. Circulation 2004;110:227 3. Solitario Guzman et al. OUSMANE Cardiol. 2020 September 13;5(5):540-548. doi: 10.1001/[email or web address].2020.0013 Current Interpretive Data was last revised on 2024. Testing performed by: [place], [address] Non-HDL Cholesterol 80 mg/dL [facility] ([place]) Comment: Interpretive Data Ages < or = 19 years Acceptable: <120 mg/dL Borderline high: 120-144 mg/dL High: >145 mg/dL Ages > or = 20 years When triglycerides are >200 mg/dL, Non-HDL cholesterol is a secondary target of therapy with treatment goals that are 30 mg/dL greater than the LDL cholesterol target. Literature References: 1. Expert Panel on Integrated Guidelines for Cardiovascular Health and Risk Reduction in Children and Adolescents. Pediatrics 2011;128:S213 2. NCEP Expert Panel. Circulation 2004;110:227 Current Interpretive Data was last revised on 2018. Testing performed by: [place], [address] Chol/HDL ratio 3 [facility] ([place]) Comment:Testing performed by : [place], [address] Blood 12/10/2024 6:50 AM CDT 12/10/2024 8:06 AM CDT us Preston PENNY LAB BLOOD ORDERABLES Fi nal Result [facility] ([place]) [facility] [place] [address] * Comprehensive metabolic panel (12/10/2024 6:50 AM CDT) Sodium 139 135 - 145 mmol/L [facility] ([place]) Potassium, pl 3.9 3.3 - 4.9 mmol/L [facility]) Chloride 101 97 - 110 mmol/L [facility]) CO2 25 22 - 32 mmol/L [facility]) Anion gap 13 2 - 15 mmol/L [facility] ([place]) BUN 19 6 - 25 mg/dL [facility]) Creatinine 0.99 0.80 - 1.30 mg/dL [facility] ([place]) Glucose 121 70 - 199 mg/dL [facility] ([place]) Comment: Interpretive Data Fasting glucose >/= 126 mg/dl is diagnostic for diabetes. Fasting is defined as no caloric intake for at least 8 hours. Fasting glucose between 100 mg/dl to 125 mg/dl is diagnostic of prediabetes. In a patient with classic symptoms of hyperglycemia or hyperglycemic crisis, a random glucose >/= 200 mg/dl is diagnostic for diabetes. In the absence of unequivocal hyperglycemia, results should be confirmed by repeat testing. The classification and Diagnosis of Diabetes Diabetes Care 202; 46: S19-S40. Current interpretive data was last revised 2022. Calcium 10.2 8.5 - 10.3 mg/dL [facility]) Bilirubin, total 1.0 0.1 - 1.2 mg/dL [facility] ([place]) Protein, pl 7.5 6.5 - 8.5 g/dL [facility] ([place]) Albumin 4.6 3.5 - 5.0 g/dL [facility] ([place]) Alk phos 117 40 - 130 Units/L [facility]) ALT 15 7 - 55 Units/L [facility]) AST 18 10 - 50 Units/L [facility] ([place]) Blood 12/10/2024 6:50 AM CDT 12/10/2024 8:06 AM CDT us Preston PENNY LAB BLOOD ORDERABLES Fi nal Result [facility] ([place]) [address] [place] [address] * Diabetic Eye Exam (04/19/2024) us Generic External Data Provider HEALTH MAINTENANC E Final Result * Colonoscopy (02/17/2024) Anatomical Region Laterality Modality Other us Generic External Data Provider ENDOSCOPY PROCEDU RES Final Result * Hepatitis panel, acute (03/02/2021 10:00 AM CDT) Hep A IgM Nonreactive Nonreactive [facility] ([place]) Comment: Interpretive Data: If Hep A IgM Ab is reported as Equivocal, a new sample should be drawn in two weeks for testing. Current interpretive data was last revised on 19. Testing performed by: [facility], [address] [place] [address]., [address] Hep B core IgM Nonreactive Nonreactive C NOEM[facility] ([place]) Comment: Interpretive Data If HepB Core IgM Ab is reported as Equivocal, a new sample should be drawn in two weeks for testing. Current interpretive data was last revised on 19. Testing performed by: [facility], [address] [place] [address]., [address] Hep C Ab Nonreactive Nonreactive [facility] ([place]) Comment: Interpretive Data Nonreactive: Antibodies to HCV not detected. Does NOT exclude the possibility of recent exposure to HCV. Equivocal: Equivocal for HCV antibodies. Supplemental molecular testing will be automatically performed to determine infection status in accordance with current CDC screening recommendations. Reactive: Positive for HCV antibodies. This may represent current or past HCV infection. Supplemental molecular testing will be automatically performed to determine current infection status in accordance with current CDC screening recommendations. Interpretive data was last revised on 2019. Testing performed by: [facility], [address] [place] [address]., [address] HepBsAg Nonreactive Nonreactive [facility] ([place]) Comment:Testing performed by : [address] [address] Blood 03/02/2021 10:0 0 AM CDT 03/02/2021 4:05 PM CDT Narrative [facility] ([place]) - 03/02/2021 5:02 PM CDT fasting Andrea Emmanuel MD LAB MICROBIOLOGY - GENERAL ORDERABLES Final Result [facility] ([place]) [facility] Department [place] [address] * DIABETES FOOT EXAM (05/12/2017) Diabetic Foot Exam Normal us Historical Provider HEALTH MAINTENANCE Final Result from Last 3 Months or Most Recently Relevant to Health Maintenance Insurance MEDICARE AETNA SENIOR [facility] MEDICARE AETNA MEDICARE AET SENIOR SUPPLEMENT Advance Directives For more information, please contact: [phone] * Full Code (Latest Code Status on File) Date Activated Date Inactivated Comments 08/03/2024 4:45 PM 08/08/2024 4:49 PM * Full Code Date Activated Date Inactivated Comments 10/26/2019 1:39 AM 10/28/2019 7:32 PM * Full Code Date Activated Date Inactivated Comments 01/09/2019 9:23 AM 01/09/2019 3:23 PM * Full Code Date Activated Date Inactivated Comments 01/09/2019 9:23 AM 01/09/2019 9:23 AM Care Teams Assayer Helper Relationship Specialty Start Date End Date Preston Gusman PA [address] [place] [address] [place] [address] PCP - General Internal Medicine 01/14/22 Caden Dhaliwal MD [address] [place] [address] [place] [address] Consulting Physician Cardiology 04/14/22 Antoni Gamez MD [address] [place] [address] [place] [address] Referring Physician Ophthalmology 04/18/23 Nithin Roldan MD [address] [facility] [address] [place] [address] Referring Physician Orthopedic Surgery 04/27/24 Willie Gonzales MD [address] [facility] DEPT ORTHOPAEDIC SURGERY, [facility] 6A/6B/[address] [place] [address] Consulting Physician Orthopedic Surgery 12/17/24 Cristina Moreno NP [address] DIV IM INFECTIOUS DISEASES, [facility] [address] [place] [address] Nurse Practitioner Infectious Diseases 12/17/24
--- OUTSIDE RECORDS SUMMARY | 2025-03-03 01:51 | XMS_ITS | Clinical Summary ---
Author Organization [facility] Address [address] [place] [id number] Care Team Providers Care Implementation Services Analyst Name Role Phone Unavailable Primary Care Provider Unavailabl e Social History Tobacco Use Types Packs/Day Years Used Date Smoking Tobacco: Never Assessed Sex and Gender Information Value Date Recorded Sex Assigned at Male 08/20/2024 1:59 PM CDT Legal Sex Male 11:46 AM CDT Gender Identity Not on file Sexual Orientation Not on file Plan of Treatment Health Maintenance Due Date Last Done Comments Colorectal Cancer Screening Colonoscopy (10 Years) 1955 Hepatitis C 1972 DTaP, Tdap and Td Vaccines ( 1 - Tdap) 1973 Pneumococcal Vaccine: 50+ Ye ars (1 of 1 - PCV) 2004 Zoster Vaccines (1 of 2) 2004 Annual Medicare Wellness Visit 09/05/2019 COVID-19 Vaccine (1 - 2023-2 5 season) 2025 Influenza Adult (#1) 2025 RSV Immunization or 60+ Years (1 - 1-dose 75+ series) 2029 Hepatitis A Vaccines Aged Out No long er eligible based on patient's age to complete this topic Meningococcal B Vaccine Aged Out No l onger eligible based on patient's age to complete this topic Meningococcal Vaccine Aged Out No risa fe eligible based on patient's age to complete this topic RSV Immunizations Under 20 Months Aged Out No longer eligible based on patient's age to complete this topic Insurance MEDICARE
--- OUTSIDE RECORDS SUMMARY | 2025-03-03 01:51 | XMS_ITS | Clinical Summary ---
Author Organization [facility] Address [address] [address] Phone Care Team Providers Care Virtual Recruiter Name Role Phone Andrea Emmanuel MD Primary Care Provider Unavaila ble Allergies Active Allergy Reactions Criticality Noted Date Comments Clindamycin Rash Medium 05/12/2017 Lisinopril Other (see Comments) 11/06/2018 Reaction: Cough, Medications omeprazole (PRILOSEC) 20 MG CAPSULE DELAYED RELEASE 20 mg. 7 Active metFORMIN (GLUCOPHAGE-XR) 500 MG TABLET SR 24 HR TAKE 4 TABLETS NIGHTLY (DOSAGE CHANGE, REPLACES METFORMIN IMMEDIATE-RELE ASE TABLET) 9 Active aspirin EC 81 MG Tablet Delayed Response 81 mg. 5 Active atorvastatin (LIPITOR) 20 MG Tablet TAKE 1 TABLET DAILY 9 Active tamsulosin (FLOMAX) 0.4 MG Capsule 0.4 mg. 6 Active Social History Tobacco Use Types Packs/Day Years Used Date Smoking Tobacco: Never Smokeless Tobacco: Never Alcohol Use Standard Drinks/Week Comments Never 0 (1 standard drink = 0.6 oz pur e alcohol) AUDIT-C Answer Date Recorded Frequency of Alcohol Consumption Never 11/06/2018 Average Number of Drinks Not on file 019 Frequency of Binge Drinking Not on file 10/15 Sex and Gender Information Value Date Recorded Sex Assigned at Not on file Legal Sex Male 10:31 PM CDT Gender Identity Not on file Sexual Orientation Not on file Last Filed Vital Signs Vital Sign Reading Time Taken Comments Blood Pressure 134/80 11/06/2018 9:22 AM CDT Pulse 67 11/06/2018 9:22 AM CDT Temperature 36.6 C (97.9 F) 11/06/2018 9:22 AM CDT Respiratory Rate 16 11/06/2018 9:22 AM CDT Oxygen Saturation 98% 11/06/2018 9:22 AM CDT Inhaled Oxygen Concentration - - Weight 108.9 kg (240 lb) 11/06/2018 9:22 AM CDT Height 177.8 cm (5' 10) 11/06/2018 9:22 AM CDT Body Mass Index 34.44 11/06/2018 9:22 AM CDT Plan of Treatment Health Maintenance Due Date Last Done Comments Hepatitis C Virus (HCV) Screening 1955 TdaP Immunization 1955 Cologuard 09/05/1999 Colonoscopy 09/05/1999 Colorectal Cancer Screening 09/05/1999 Immunochemical Fecal Occult Blood 09/05/1999 Pneumococcal Immunization (5 0+ years) (1 of 1 - PCV) 2004 Zoster Immunization (1 of 2) 2004 Medicare Initial AWV [id number] 08/14/2020 Influenza Immunization (#1) 2025 03/30/2016 SARS-COV-2 Immunization ( season) 2025 04/06/2021, 08/11/2020, 07/12/2020 Respiratory Syncytial Virus (RSV) Immunization (Adult) (1 - 1-dose 75+ series) 2029 Hepatitis B Immunization Aged Out No longer eligible based on patient's age to complete this topic Human Papillomavirus (HPV) Immunization Aged Out No longer eligible b ased on patient's age to complete this topic Meningococcal Immunization (ACWY) Aged Out No longer eligible b ased on patient's age to complete this topic Rotavirus Immunization Aged Out No lo nger eligible based on patient's age to complete this topic Insurance MEDICARE MEDICARE C AETNA Care Teams Virtual Recruiter Relationship Specialty Start Date End Date Andrea Emmanuel MD [address] [facility] [place] [address] PCP - General Internal Medicine 11/06/18
--- OUTSIDE RECORDS SUMMARY | 2025-03-03 01:51 | XMS_ITS | Data Portability ---
Author Organization [facility], Main Office Address [address] [place] [address] [address] [place] [address] Assessment Encounter Date Assessment Date Assessment LastModified by Organization Details LastModified Time 07/07/2020 07/07/2020 ASSESSMENT AND PLAN: Diagnoses discussed. Treatment reviewed. Questions answered. SPF 30. Monthly self-exam. Had some xerosis of the lower extremities. Emollients given. Reassurance all benign. Reviewed tinea versicolor and the amiodarone. He has been on that before and is less than 800 mg. He is going to stop the atorvastatin and the meloxicam while he is on it. Follow p.r.n. [id number] Not available 07/08/2020 01:20:35 Plan of Treatment Reminders Order Date Submit Date Provider Last Modified By Organization Details Last Modified Time Details Appointments None recorded. Lab None recorded. Referral None recorded. Procedures None recorded. Surgeries None recorded. Imaging None recorded. Medication Orders fluconazole 100 mg tablet 2020 021 [email or web address] [id number], [address], [place], [place], [phone], 20:55:41 Patient TargetsNo targets recorded. Patient Instructions Encounter Date Encounter Id Patient Instructions Last Modified By Organization Details Last Modified Time 07/07/2020 [id number] dict [email or web address] Not available 07/07 16:12:13 Reason for Referral None Reported. Medical Equipment None Reported. Allergies Allergen ID Allergen Name Allergen Category Reaction Reaction Severity Criticality Documentation Date Start Date Code Code System Note Provider Name and Address Organization Details Recorded Time 2869 clindamyc in Not available Not available Not available Not available 07/07/2020 2580 RxNorm Mady guaman [facility] 15:12:55 Medications Name Sig Start Date Stop Date Status Note LastModified by Organization Details LastModified Time amoxicillin 500 mg capsule TK FOUR CS PO 1 HOUR B DAPP active Not Available Not Available No t Available pioglitazone 15 mg tablet active Not Available Not Available Not Available fluconazole 100 mg tablet TAKE 1 TABLET BY MOUTH EVERY DAY FOR 6 DAYS active Not Available Not Available No t Available clonidine HCl 0.1 mg tablet active Not Available Not Availabl e Not Available atorvastatin 20 mg tablet active Not Available Not Available Not Available amiodarone 200 mg tablet active Not Available Not Available No t Available meloxicam 15 mg tablet active Not Available Not Available No t Available omeprazole 40 mg capsule,delaye d release active Not Available Not Available No t Available amoxicillin 500 mg tablet DNT active Not Available Not Availabl e Not Available tamsulosin 0.4 mg capsule active Not Available Not Available N ot Available diltiazem CD 300 mg capsule,extend ed release 24 hr active Not Available Not Available Not Available cephalexin 500 mg capsule TK 1 C PO BID FOR 5 DAYS active Not Available Not Available No t Available metformin ER 500 mg tablet,extende d release 24 hr active Not Available Not Available Not Available aspirin active Not Available Not Avail able Not Available valsartan 320 mg-hydrochloro thiazide 25 mg tablet active Not Available Not Available Not Available Vitals None Recorded Social History None recorded. Functional Status None recorded. Mental Status None recorded. Family History Nothing Reported. Medical History No medical history recorded. 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 1373686 0 L85.3 legs, emoll given Health Concerns Section Related Observation LastModified by Organization Detai ls LastModified Time None Recorded Concern Status LastModified by Organization Details LastModified Time None Recorded Advance Directives Directive None Recorded Payers Insurance Date Sequence Insurance Name Policy Number Policy Pierce Covered Member ID Pierce Member ID Guarantor Name 07/13/2020 2 [employer] (MEDICARE SUPPLEMENT) Brian Garcia [id number] Brian Garcia 07/07/2020 1 MEDICARE [place]: [place] Brian Garcia [id number] Brian Garcia Notes Date Note Type Note Provider Name and Address Organization Details Recorded Time 07/07/2020 text/html HISTORY OF PRESENT ILLNESS: Brian Garcia is a 64-year-old with no full concerns, rash he gets off and on, going to get it worse in the spring and summer times years. Treatment; fluconazole in the past with clearance but continues to recur. Minimal symptom. Minimal itch. Red spot on the nose for years. No change. Red spot below the right lower eyelid times years. No change. Symptoms; none. Treatment; none. Spots on the torso to check. General skin exam. PAST MEDICAL HISTORY: Diabetes, high blood pressure. The patient is color blind. PAST SURGICAL HISTORY: Right shoulder replacement 2018. Left shoulder replacement 2017. ALLERGIES: None. MEDICATIONS: See list. FAMILY HISTORY: Negative for skin cancer. SOCIAL HISTORY: Smokes; . Alcohol; . Galo Javier MD [address] [facility] [address], [place], [address], [facility] 07/13/2020 20:55:50
--- OUTSIDE RECORDS SUMMARY | 2025-03-03 01:51 | XMS_ITS | Encounter Summary ---
Author Organization [facility] Address [address] [place] [address] Phone Care Team Providers Care Admitting Supervisor Name Role Phone Andrea Emmanuel MD Primary Care Provi kishan Roger Haynes MD Unavailable [phone] Preston Gusman Primary Care Provider Caden Dhaliwal MD Unavailable [phone] Antoni Gamez MD Unavailable [phone] Nithin Roldan MD Unavailable [phone] Sanaz Greenwood RN Unavailable [phone] Sherry Stallworth LCSW Unavailable [phone] Willie Gonzales MD Unavailable Cristina Moreno NP Unavailable Encounter Details Date Type Department Care Team (Late st Contact Info) Description 07/18/2017 Orders Only [facility] Provider, MD [facility] [place] [address] Social History Tobacco Use Types Packs/Day Years Used Date Smoking Tobacco: Never Smokeless Tobacco: Never Alcohol Use Standard Drinks/Week Comments No 0 (1 standard drink = 0.6 oz pur e alcohol) Sex and Gender Information Value Date Recorded Sex Assigned at Not on file 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 us Historical Provider LAB BLOOD ORDERABLES Esme l Result documented in this encounter Visit Diagnoses Not on filedocumented in this encounter Care Teams Admitting Supervisor Relationship Specialty Start Date End Date Andrea Emmanuel MD PCP - General 08/13/16 01/13/22 Preston Gusman PA [address] [place] [address] [place] [address] PCP - General Internal Medicine 01/14/22 Roger Haynes MD Consulting Physician Urology 10/28/19 04/17/23 Caden Dhaliwal MD [address] [place] [address] [place] [address] Consulting Physician Cardiology 04/14/22 Antoni Gamez MD [address] [place] [address] [place] [address] Referring Physician Ophthalmology 04/18/23 Nithin Roldan MD [address] [facility] [address] [place] [address] Referring Physician Orthopedic Surgery 04/27/24 Sanaz Greenwood RN [address] [place] [address] [place] [address] Safety And Security Officer 08/09/24 09/11/24 Sherry Stallworth, FIRST COAT SANDER [address] [facility] [address] [place] [address] Machine Operator Assistant 08/09/24 08/16/24 Willie Gonzales MD [address] [facility], [facility] [address] [place] [address] Consulting Physician Orthopedic Surgery 12/17/24 Cristina Moreno, MANAGER CONVENTION [address] INFECTIOUS DISEASES, [facility] [address] [place] [address] Nurse Practitioner Infectious Diseases 12/17/24 documented as of this encounter
--- NOTE | 2025-03-03 01:53 | ECG_ITS ---
Test Date: 2025-03-03 01:59:08 Measurements Intervals [place] Rate: 78 P: 24 OH: 213 QRS: -29 QRSD: 101 T: 45 QT: 335 QTc: 382 Interpretive Statements SINUS RHYTHM WITH FIRST DEGREE AV BLOCK WITH FREQUENT VENTRICULAR PREMATURE COMPLEXES IN A BIGEMINAL PATTERN CONSIDER ANTERIOR INFARCT, AGE INDETERMINATE CONSIDER INFERIOR INFARCT, AGE INDETERMINATE ABNORMAL ECG Compared to ECG 02/18/2024 22:32:14 HEART RATE HAS INCREASED VENTRICULAR BIGEMINY NOW PRESENT Electronically Signed On 03-03-2025 08:40:52 CDT by Romel Jj D.O.
[2025-03-03 01:57] VITALS: PULSE 80; RESP 18; TEMP 36.7; O2SAT 98
[2025-03-03 02:12] LABS: Hematocrit 42.0 % (42.0-52.0); Hemoglobin 12.7 g/dL (14.0-18.0); Immature Granulocyte Percent A 1.4 % (0-0.5); Lymphocytes Absolute Auto 3.49 K/mm3 (0.9-3.2); Mean Corpuscular HGB Conc 30.2 g/dl (32-36); Mean Corpuscular Hemoglobin 24.0 pg (26-34); Mean Corpuscular Volume 79.4 fl (80-100); Nucleated Red Blood Cells Absolute Auto 0.000 K/mm3 (0.0-0.012); Nucleated Red Blood Cells Perc 0.0 % (0.0-0.2); Platelet Count Result 347 k/mm3 (150-375); Red Blood Count 5.29 M/mm3 (4.6-6.20); White Blood Count 12.2 K/mm3 (4.5-10.0)
[2025-03-03 02:25] LABS: Alanine Aminotransferase 17 U/L (6-50); Albumin Level 3.9 g/dL (3.5-5.1); Alkaline Phosphatase 100 U/L (38-126); Anion Gap 7 mmol/L (4-12); Aspartate Amino Transferase 20 U/L (17-59); Bilirubin,Total 0.7 mg/dL (0.2-1.3); Blood Urea Nitrogen 19 mg/dL (9-20); Calcium 9.1 mg/dL (8.4-10.2); Carbon Dioxide 25 mmol/L (22-30); Chloride 109 mmol/L (98-107); Estimated Glomerular Filt Rate > 60; Glucose 137 mg/dL (65-110); Lipase 609 U/L (23-300); Potassium 3.9 mmol/L (3.4-5.0); Sodium 141 mmol/L (137-145); Total Protein 7.0 g/dL (6.3-8.2)
[2025-03-03 02:27] LABS: INR 1.1; Prothrombin Time 14.2 Seconds (11.1-14.7)
[2025-03-03 02:28] LABS: Partial Thromboplastin Time 30.1 Seconds (22.3-36.8)
[2025-03-03 02:36] LABS: Troponin I < 0.012 ng/mL (0.000-0.034)
[2025-03-03 03:08] VITALS: PULSE 64; RESP 16; O2SAT 96
[2025-03-03 03:15] VITALS: PULSE 61; RESP 18; O2SAT 96
--- NOTE | 2025-03-03 03:20 | ED.ARRPALP ---
HPI - Arrhythmia/Palpitations General Chief Complaint: Arrhythmia/Palpitations Stated Complaint: palpations Time Seen by Provider: 03/03/25 02:05 Source: patient Mode of arrival: ambulatory Limitations: no limitations History of Present Illness HPI narrative: 69-year-old with a history of AFib on Eliquis here with the complaints of having irregular heart rate 39-90 since this morning. Denies having any chest pain, lightheadedness or dizziness. MD complaint: irregular heart beat and atrial fibrillation Onset (ago): day(s) (1) Duration: intermittent Severity: moderate Context: occurred during rest Arrhythmia history: atrial fibrillation Associated symptoms: denies other symptoms Related Data Home Medications ?Medication ?Instructions ?Recorded ?Confirmed ?Last Taken ?Type aspirin 81 mg tablet,delayed 81 mg PO DAILY 05/02/19 05/04/24 02/16/24 21:00 History release atorvastatin 20 mg tablet 20 mg PO DAILY 05/02/19 05/04/24 02/16/24 21:00 History diltiazem HCl 300 mg 300 mg PO HS 05/02/19 05/04/24 02/16/24 09:00 History capsule,extended release 24 hr (Cartia XT) metformin 500 mg tablet 1,000 mg PO BID 05/02/19 05/04/24 02/16/24 21:00 History clonidine HCl 0.1 mg tablet 0.1 mg PO HS 12/07/23 05/04/24 02/16/24 09:00 History flecainide 100 mg tablet 50 mg PO Q12H 12/07/23 05/04/24 03/23/24 06:00 History sildenafil 100 mg tablet 100 mg PO DAILY PRN Sexual Activity 12/07/23 05/04/24 02/16/24 21:00 History valsartan 320 1 tablet PO QAM 12/07/23 05/04/24 03/23/24 06:00 History mg-hydrochlorothiazide 25 mg tablet vitamin E mixed 400 unit tablet 400 unit PO HS 03/12/24 05/04/24 Unknown History omeprazole 40 mg capsule,delayed 40 mg PO HS 03/15/24 05/04/24 Unknown History release Allergies Allergy/AdvReac Type Severity Reaction Status Date / Time clindamycin Allergy Unknown Rash Verified 04/06/24 10:24 Review of Systems Review of Systems: All systems reviewed & are unremarkable except as noted in HPI and below Constitutional: Constitutional: Reports no additional constitutional complaints Eyes: Eyes: Reports no additional eye complaints ENT: Reports system reviewed and no additional complaints, except as documented Cardiovascular: Cardiovascular: Reports as per HPI Respiratory: Respiratory: Reports no additional respiratory complaints Gastrointestinal: Gastrointestinal: Reports no additional gastrointestinal complaints Musculoskeletal: Musculoskeletal: Reports no additional musculoskeletal complaints PMFSH Past Medical History Medical History 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 Dhaliwal Sleep apnea Hyperlipidemia Diabetes type 2, controlled A-fib Hypertension Surgical History Surgical History Presence of left artificial shoulder joint (07/05/16) Presence of right artificial knee joint (~2005) Presence of right artificial shoulder joint (~06/20/18) Presence of left artificial knee joint (02/23/17) Family History Family History Other Family history of arthritis Family history of malignant neoplasm Social History Social History Smoking status: Never smoker Alcohol intake: current Drinks per week: 2 Substance use type: does not use Do You Feel Safe in your Home?: Yes Lack of Transportation: No Lack of Food: Never True Current Housing: I Have Housing Concerned About Future Housing: No Difficulty Paying Gas/Electric Bills: No Difficulty Paying for Meds: No Currently Unemployed: No Education: Trade/Vocational Certificate Difficulty w/ Childcare or Family Care: No Living arrangements: alone Spiritual care concerns: No Exam Narrative: GENERAL: Well-appearing, well-nourished, and in no acute distress. HEAD: Normocephalic, atraumatic. EYES: PERRLA and EOMI. ENT: Nares clear, no rhinorrhea or epistaxis. Mucous membranes moist. NECK: Supple. CHEST: Clear to auscultation. No respiratory distress. HEART:Irregular rate and rhythm. No murmur heard. Normal peripheral pulses. ABDOMEN: Soft, nontender, nondistended, normal active bowel sounds. EXTREMITIES: Normal range of motion. No edema. SKIN: Warm, dry, no rash. NEURO: No focal deficits. Alert and oriented x3. PSYCH: Normal mood and affect. Course Course Emergency Course: Patient comfortably resting his heart rate has been stating between 60 and 70 informed him about his lab work. Chest x-ray findings. Advised him to continue his home medication, follow-up with his api architect. He does feel going home Vital Signs Vital signs: Vital Signs Temperature 36.7 C 03/03/25 01:57 Pulse Rate 80 03/03/25 01:57 Respiratory Rate 18 03/03/25 01:57 Pulse Oximetry 98 03/03/25 01:57 Oxygen Delivery Room Air 03/03/25 01:57 Temperature 36.7 C 03/03/25 01:57 Pulse Rate 80 03/03/25 01:57 Respiratory Rate 18 03/03/25 01:57 Pulse Oximetry 98 03/03/25 01:57 Oxygen Delivery Room Air 03/03/25 01:57 MDM - Arrhythmia/Palpitations Differential Diagnosis Differential diagnosis: Likely palpitations, artial fibrillation and artial flutter Medical Records Attestation: I reviewed the patient's medical records. Lab Data Attestation: I reviewed the patient's lab results. 03/03/25 02:06 03/03/25 02:06 Labs: Lab Results 03/03/25 Range/Units 02:06 WBC 12.2 H (4.5-10.0) K/mm3 RBC 5.29 (4.6-6.20) M/mm3 Hgb 12.7 L (14.0-18.0) g/dL Hct 42.0 (42.0-52.0) % MCV 79.4 L (80-100) fl MCH 24.0 L (26-34) pg MCHC 30.2 L (32-36) g/dl RDW 16.7 H (11.5-14.5) % Plt Count 347 (150-375) k/mm3 MPV 10.6 H (7.4-10.4) fl Immature Gran % (Auto) 1.4 H (0-0.5) % Neut % (Auto) 48.6 (45.5-73.1) % Lymph % (Auto) 28.7 (18.3-44.2) % [place] % (Auto) 16.5 H (2.6-8.5) % Eos % (Auto) 4.0 (0-4.4) % Baso % (Auto) 0.8 (0.2-1.2) % Lymph # (Auto) 3.49 H (0.9-3.2) K/mm3 [place] # (Auto) 2.0 H (0.1-0.6) K/mm3 Eos # (Auto) 0.5 H (0-0.3) K/mm3 Baso # (Auto) 0.1 (0.0-0.1) K/mm3 Abs Immat Gran (auto) 0.17 H (0.00-0.031) K/mm3 Absolute Neuts (auto) 5.9 (1.3-6.7) K/mm3 Absolute Nucleated RBC 0.000 (0.0-0.012) K/mm3 Nucleated RBC % 0.0 (0.0-0.2) % PT 14.2 (11.1-14.7) Seconds INR 1.1 APTT 30.1 (22.3-36.8) Seconds Sodium 141 (137-145) mmol/L Potassium 3.9 (3.4-5.0) mmol/L Chloride 109 H (98-107) mmol/L Carbon Dioxide 25 (22-30) mmol/L Anion Gap 7 (4-12) mmol/L BUN 19 (9-20) mg/dL Creatinine 0.95 (0.7-1.3) mg/dL Estim Creat Clear Calc Not Reportable Estimated GFR > 60 (59 - ) Glucose 137 H (65-110) mg/dL Calcium 9.1 (8.4-10.2) mg/dL Total Bilirubin 0.7 (0.2-1.3) mg/dL AST 20 (17-59) U/L ALT 17 (6-50) U/L Alkaline Phosphatase 100 (38-126) U/L Troponin I < 0.012 (0.000-0.034) ng/mL Total Protein 7.0 (6.3-8.2) g/dL Albumin 3.9 (3.5-5.1) g/dL Lipase 609 H (23-300) U/L Imaging Data My impression: No acute finding ECG Data EKG #1: ECG completion date: 03/03/25 ECG completion time: 01:59 EKG Interpretation: normal rate (78), atrial fibrillation, PVCs, no ST changes, NL axis and no acute changes Discharge Plan Discharge Clinical Impression: Atrial fibrillation Qualifiers: Atrial fibrillation type: persistent (not longstanding) Qualified Code(s): I48.19 - Other persistent atrial fibrillation Patient Disposition: Home Condition: Stable Instructions: A-fib (Atrial Fibrillation) (ED) Additional Instructions: continue home medications, follow with Dr. Dhaliwal Patient Language: Erit[place] Prescriptions: No Action aspirin 81 mg tablet,delayed release (DR/EC) 81 mg PO DAILY atorvastatin 20 mg tablet 20 mg PO DAILY diltiazem HCl [Cartia XT] 300 mg capsule,extended release 24hr 300 mg PO HS metformin 500 mg tablet 1,000 mg PO BID clonidine HCl 0.1 mg tablet 0.1 mg PO HS valsartan-hydrochlorothiazide 320-25 mg tablet 1 tablet PO QAM flecainide 100 mg tablet 50 mg PO Q12H sildenafil 100 mg tablet 100 mg PO DAILY PRN (Reason: Sexual Activity) Rx Instructions: administer 30 minutes to 4 hours before activity vitamin E mixed 400 unit tablet 400 unit PO HS omeprazole 40 mg capsule,delayed release(DR/EC) 40 mg PO HS oxycodone-acetaminophen 5-325 mg tablet 1 - 2 tablet PO Q4-6H MDD 6 PRN (Reason: pain) 7 Days Qty: 30 0RF Follow-up/Referrals: Uzma,HEMALATHA Rendon [Primary Care Provider, Unknown] Time of Disposition: 03:21
[2025-03-03 03:31] VITALS: BP 107/65; PULSE 63; RESP 14; O2SAT 98
== END 2025-03-03 03:45 | disposition home or self-care (01) ==
PROVIDERS: Emergency Provider Family Medicine; PCP Physician Assistant
DX: I48.19 Other persistent atrial fibrillation (principal); I10 Essential (primary) hypertension; E78.5 Hyperlipidemia, unspecified; E11.9 Type 2 diabetes mellitus without complications; G47.30 Sleep apnea, unspecified; Z96.612 Presence of left artificial shoulder joint; Z96.611 Presence of right artificial shoulder joint; Z96.653 Presence of artificial knee joint, bilateral; Z79.82 Long term (current) use of aspirin; Z79.899 Other long term (current) drug therapy; Z79.84 Long term (current) use of oral hypoglycemic drugs
CPT/HCPCS: 36415; 71045; 80053; 83690; 84484; 85025; 85610; 85730; 93005; 99284